=== PATIENT | female | born 1965 | race Caucasian/White ===

== ENCOUNTER → 2019-11-11 07:26 | Outpatient (CLI) | payer OTHER, SELFPAY ==
[2019-11-11 08:14] LABS: Add Manual Diff / Slide Review NO; Basophils Absolute Auto 0 /uL (0-100); Basophils Percent Auto 0.9 % (0-2); Eosinophils Absolute Auto 200 /uL (0-450); Eosinophils Percent Auto 3.1 % (2-4); Hematocrit 40.4 % (36-46); Hemoglobin 13.7 g/dL (12.0-16.0); Lymphocytes Absolute Auto 1900 /uL (1100-4500); Lymphocytes Percent Auto 32.3 % (25-40); Monocytes Absolute Auto 500 /uL (0-900); Neutrophils Absolute Auto 3200 /uL (1500-7000); Neutrophils Percent Auto 54.7 % (50-75); Platelet Count 267 X10^3/uL (150-400); Red Blood Cell Count 4.44 X10^6/uL (4.0-5.2); Red Cell Distribution Width 12.8 % (11.6-14.8); White Blood Cell Count 5.8 X10^3/uL (4.5-11.0)
[2019-11-11 08:32] LABS: Alanine Aminotransferase 18 IU/L (<35); Albumin 4.5 g/dL (3.5-5.0); Albumin Globulin Ratio 1.4 (1.0-2.8); Alkaline Phosphatase 98 U/L (38-126); Aspartate Aminotransferase 26 IU/L (14-36); Bilirubin Total 0.6 mg/dL (0.2-1.3); Blood Urea Nitrogen 19 mg/dL (7-17); Calcium 9.8 mg/dL (8.4-10.2); Carbon Dioxide 27 mmol/L (22-32); Chloride 104 mmol/L (98-107); Cholesterol 246 mg/dL (140-199); Estimated Glomerular Filt Rate > 60.0 mL/min (>60); Globulin 3.3 g/dL (1.7-4.1); Glucose 110 mg/dL (70-100); HDL Cholesterol 61 mg/dL (40-60); HEMOLYSIS < 15 (0-50); LDL Cholesterol Calculated 162 mg/dL (<100); Potassium 4.2 mmol/L (3.4-5.1); Sodium 140 mmol/L (137-145); Total Protein 7.8 g/dL (6.3-8.2); Triglycerides 114 mg/dL (35-150)
[2019-11-11 08:44] LABS: Progesterone, Total 1.17 ng/mL
[2019-11-11 08:47] LABS: Free T3, Triiodothyronine Free 3.72 pg/mL (2.77-5.27); Free T4, Direct Thyroxine 0.86 ng/dL (0.78-2.19)
[2019-11-11 09:00] LABS: Thyroid Stimulating Hormone 1.86 uIU/mL (0.47-4.68)
[2019-11-11 09:02] LABS: Cortisol AM (Before 10AM) 11.6 ug/dL (4.46-22.7)
[2019-11-12 00:06] LABS: Thyroid Peroxidase Antibodies <9 IU/mL (0-34)
[2019-11-17 10:48] LABS: Estradiol 7.6 pg/mL (.); Estriol,Serum <0.1 ng/mL (.); Estrone,Serum 70 pg/mL (.)
[2019-11-20 15:07] LABS: Percent Free Testosterone 1.74 % (0.50-2.80); Testosterone Free 0.22 ng/dL (0.10-0.85); Testosterone Total 12.6 ng/dL (.)
== END ==
PROVIDERS: PCP Nurse Practitioner; Referring Provider Nurse Practitioner; Visit Provider Nurse Practitioner
DX: N92.6 Irregular menstruation, unspecified (principal); N95.1 Menopausal and female climacteric states; R23.2 Flushing
CPT/HCPCS: 36415; 80053; 80061; 82533; 82627; 82670; 82677; 82679; 84144; 84402; 84403; 84439; 84443; 84481; 85025; 86376

== ENCOUNTER 2020-01-18 11:15 | Outpatient (RCR) | payer OTHER, SELFPAY ==
--- NOTE | 2019-11-11 17:23 | PT.OIE ---
Current Diagnoses Stress incontinence (female) (male) (11/11/19) Past Medical History (Last Updated 09/14/19 @ 19:43 by Jen Huber) Bilateral elbow joint pain (Acute) Depression (Acute) Eczema (Chronic) Elbow pain (Chronic ~2018) GERD (gastroesophageal reflux disease) (Chronic ~2014) Irregular menstrual cycle (Chronic ~2017) Obesity (BMI 35.0-39.9 without comorbidity) (Chronic) Perimenopause (Chronic) Pneumonia (Resolved ~2015) Positive PPD (Acute) Rosacea (Chronic ~2019) Sleep apnea (Chronic ~2018) Stress incontinence (Chronic ~2017) Past Surgical History (Last Updated 09/14/19 @ 19:43 by Jen Huber) Anesthesia (Resolved) History of meniscectomy of right knee (Resolved ~2015) History of radial keratotomy (Resolved ~1997) History of reduction mammoplasty (Resolved ~2008) Visit Care Team Role Provider Type LUCERO Barton Attending Provider Advanced Ceo And President Primary Care Provider Referring Provider Specialty: [facility] Address: [address] [place] [address], [facility] Email: [email or web address] Physical Therapy Initial Evaluation PT-OP-A Visit Information Start: 11/09/19 21:03 Freq: Status: Active Protocol: Document 11/11/19 08:19 LRN (Rec: 11/11/19 09:03 LRN [id number]) Out-Patient Physical Therapy Visit Information Visit Information Visit Type Initial Evaluation Visit Start Time 08:19 Visit Stop Time 09:02 Total Visit Minutes 43 Visit Number 1 Evaluation Information Evaluation Date 11/11/19 Precautions Precautions Chronic Back pain. PT-OP-B Current Condition Start: 11/09/19 21:03 Freq: Status: Active Protocol: Document 11/11/19 08:19 LRN (Rec: 11/11/19 09:03 LRN [id number]) Current Condition History of Current Condition Onset Date 15-20 yrs ago Current Complaints Urinary Leakage with laugh cough or sneeze. Trigger occasionally w/urge. History of Current Condition States she has had urinary leakage since children born. Pt reports 2 vaginal births 1997 and 2000 with no complications but with 1st degree tears on 1st and a 2nd degree tear on the last . She states sometimes her underwear smells like urine; therefore she may be leaking more than she is aware of. States she doesn't wear pads. Denies nighttime leakage. Pt has chronic back pain not associated to a specific injury. Her back pain is daily, sometimes worse with transfers sit to stand. She also complains of bilateral elbow pain. 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 Soft splints for medial epicondylitis caused her more pain. 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 See above for UI history. Treatment Goals Patient/Caregiver Goals Pt goal is to prevent worsening of her urinary leakage. Prior Functional Status Baseline Function- ADL's Independent Baseline Function- Mobility Independent Baseline Function- Other R handed. Current Functional Impairments (Reported) Functional Limitations- ADL's Light urinary leakage with strong cough/sneeze. Feeling of falling out with exertion. Inconvenience of smelling urine from underwear at the end of the day. Triggers: Shower/bath & warm water. 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 Chronicity of condition (since 1997). PT-OP-C Subjective Start: 11/09/19 21:03 Freq: Status: Active Protocol: Document 11/11/19 08:19 LRN (Rec: 11/11/19 09:03 [facility] [id number]) Patient Questionnaires Pelvic Pain and Urgency/Frequency Patient Symptom Scale Pelvic Pain Score 4 OP-PT Pain Assessment Pain Assessment Grid Paper Pain Assessment Grid Completed Yes Location Right knee Pain Location Details Medial R knee Intensity 4 Scale Used Numeric (1 - 10) Low Back Pain Location Details Low back Intensity 1 Scale Used Numeric (1 - 10) Description Aching,With Movement Frequency Intermittent Elbows Pain Location Details Medial elbows Intensity 3 Scale Used Numeric (1 - 10) Description Chronic PT-OP-I Pelvic Floor Start: 11/09/19 21:03 Freq: Status: Active Protocol: Document 11/11/19 08:19 LRN (Rec: 11/11/19 09:03 N [id number]) Pelvic Floor Assessment Urine Pelvic Floor Surgery No Urinary Symptoms Prolapse,Falling Out Feeling/ Heavy Leakage Size Small Leakage Cause Cough,Sneeze,Urge Other Leakage Causes Daily dribbles. Sometime with strong urge Voiding Frequency 4x/day Nocturia 0 Urine Pad Type Panty Liner Bowel Bowel Symptoms Constipation Other Bowel Symptoms No symptoms Pelvic Clock Pelvic Clock 12-3 Atrophy Pelvic Clock 3-6 Atrophy Pelvic Clock 6-9 Atrophy Pelvic Clock 9-12 Atrophy Prolapse Cystocele Grade 1 Perineal Descent Resting Absent Bearing Present Contraction Ability Voluntary Contraction Weak Voluntary Relaxation Weak Manual Muscle Testing Left 0 Manual Muscle Testing Right 0 Manual Muscle Testing Anterior 2 Manual Muscle Testing Posterior 1 Muscle Endurance (Seconds) 1 Number of Quick Contractions In 10 0 Seconds Comments Pelvic Floor Comments Pt substitutes with Abdominal, Gluteals & hip AD's to create a PF contraction. PT-OP-J Posture/Palpation/Skin Start: 11/09/19 21:03 Freq: Status: Active Protocol: Document 11/11/19 08:19 LRN (Rec: 11/11/19 09:03 LRN [id number]) Posture Evaluation Position Standing Evaluation View all positions Head/C-Spine Posture Forward Head T-Spine Posture Flattened Pelvis Posture Anteriorly Tilted Knee Posture (L) Genu Valgus,(R) Genu Valgus PT-OP-K Range of Motion Start: 11/09/19 21:03 Freq: Status: Active Protocol: Document 11/11/19 08:19 LRN (Rec: 11/11/19 09:03 LRN [id number]) Lumbar Spine Range of Motion Lumbar Spine Active Degrees Testing Position Standing Flexion 80 ROM Limitations Soft Tissue Tightness Comments WNL except as noted above. Hip Goniometric Range of Motion Hip Right Passive Testing Position Supine Extension 10 Abduction 45 Internal Rotation 45 External Rotation 70 Left Passive Testing Position Supine Extension 5 Abduction 40 Internal Rotation 50 External Rotation 60 PT-OP-M Strength Start: 11/09/19 21:03 Freq: Status: Active Protocol: Document 11/11/19 08:19 LRN (Rec: 11/11/19 09:03 LRN [id number]) Trunk Strength Trunk Manual Muscle Testing Testing Position Prone & Sitting Core Stabilization Pt not able to maintain core stability with MMT of hip extensors and L hip IR's, indicating weakness of trunk rotators and flexors. Hip Strength Hip Manual Muscle Testing Right Comments Generally 5/5 Left Extension (S1) 3 Fair Internal Rotation 3+ Fair+ Comments 5/5 except as noted above PT-OP-Q Treatments Start: 11/09/19 21:03 Freq: Status: Active Protocol: Document 11/11/19 08:19 LRN (Rec: 11/11/19 09:03 LRN [id number]) Self-Care/Home Management Treatment Education Patient Education Home Exercise Program Other Education Issued & reviewed Bladder Diary with I/S given for documenting fluids intake/ outputs. Reviewed pt to track daily. Discussed briefly pain in other body parts with potential for PT to address bilateral medial elbow joints. Activities Self-Care/Home Management Activities Issued and reviewed HEP for Kegels of Quick Flicks and Long Holds. Pt awareness training for isolation of PF from substitute muscles during Kegels. Pt awareness training for contraction of anterior vs posterior PF muscles. Utilized hand mirror for visual feedback of PF pati. Discussed self care of not stopping urine flow during voiding for exercise. PT-OP-T Assessment and Plan Start: 11/09/19 21:03 Freq: Status: Active Protocol: Document 11/11/19 08:19 LRN (Rec: 11/11/19 09:03 LRN [id number]) Physical Therapy Assessment Rehab Potential Rehabilitation Potential Good Evaluation Complexity Number of Personal Factors/Comorbidities 1-2 Impairments Impairments Activity Tolerance,Pain,ROM, Strength,Transfers Goals Four Impairment Substitute ms (gluteal, hip muscles) needed for PF contraction. Short Term Goal (STG) Pt will be aware of associated muscles during a PF contraction. Fdc Goal (LTG) Decrease use of associated abdominal/gluteal ms during a PF contraction. LTG Duration 01/10/20 Decreased PF endurance Impairment Quick Flicks 0 reps, Long Holds 1 rep using substitute ms. Short Term Goal (STG) Pt will be able to perform a palpable Quick Flick ms contraction and will be able to delay leakage from a strong urge. STG Duration 12/09/19 Fdc Goal (LTG) Pt will be able to hold a Long Hold PF contraction 8-10 sec' s with elimination of urinary leakage and decrease of observation of urine smell from underwear at least 5 days per week. LTG Duration 01/10/20 Three Impairment Dec'd superficial ms PF strength (0/5 of PF clock) Short Term Goal (STG) Improve awareness of PF contraction with pt able to palpate a PF contraction of the superficial muscles. STG Duration 12/09/19 Deicer Finisher Goal (LTG) Pt will improve PF strength of superficial muscles to 2-3/5 and will be able to delay urinating in the presence of a strong urge using the delay technique. LTG Duration 01/10/20 Two Impairment Dec'd deep ms PF strength (0/5 lateral christensen, 2/5 anterior, 1/5 posterior) Short Term Goal (STG) Improve awareness of PF contraction with feeling of lift with contraction. STG Duration 12/09/19 Fdc Goal (LTG) Improve PF strength of deep muscles to no less than 3-/5 with pt able to maintain continence in the presence of a strong urge. LTG Duration 01/10/20 One Impairment Lacks self care HEP Fdc Goal (LTG) Pt will be independent with a self care HEP to promote continued PF strengthening at end of therapy. LTG Duration 01/10/20 Assessment Summary Assessment Pt presents with stress urinary incontinence with occasional leakage from a strong urge. The pt is quite weak in her PF and is not able to properly perform a coordinated PF contraction. She has poor awareness of performing a proper PF contraction. The pt will benefit from skilled physical therapy to improve the awareness of proper PF contractions, and to improve her PF strength in both superficial and deep muscles in order to minimize urinary leakage. Her back pain will need to be addressed in order to now have muscle inhibition associated to the back pain and to improve her core/pelvic strength and stability. Physical Therapy Plan Frequency and Duration Frequency of Treatment 1x/Week Plan of Care Start Date 11/11/19 Plan of Care End Date 01/10/20 Therapeutic Interventions Therapeutic Interventions Coordination Training,Home Exercise Program,Joint Mobilizations,Manual Therapy, Neuromuscular Re-education, Patient/Caregiver Education, Self-Care/Home Management, Therapeutic Exercises Modalities Biofeedback,Electric Stimulation Other Referrals/Consults Referrals/Consults Recommended At completion of her UI rehabilitation therapy the pt would benefit from PT for her bilateral elbow pain. Next Visit Focus/Plan Next Note Type Treatment Note Next Visit Plan Review Bladder Diary and make appropriate recommendations. Discuss proper clothing wear ( underwear, restrictive clothing). EMG assessment Therapeutic Ex: Hip mobility- hamstrings, L hip ER/ext/AB, R hip IR Strengthening-L hip IR/ext; Core/PF strengthening I/S in proper breathing with exercise and ADLs.] HEP as appropriate.
--- NOTE | 2019-11-11 17:24 | PT.OPPOC ---
Physical, Occupational & Speech Therapy At [facility] Current Diagnoses Stress incontinence (female) (male) (11/11/19) Visit Care Team Role Provider Type LUCERO Barton Attending Provider Advanced Tafe Registrar Primary Care Provider Referring Provider Specialty: Family Practice Address: [address] [place] [address], [address] Email: [email or web address] Plan Of Care PT-OP-T Assessment and Plan Start: 11/09/19 21:03 Freq: Status: Active Protocol: Document 11/11/19 08:19 LRN (Rec: 11/11/19 09:03 LRN [id number]) Physical Therapy Assessment Rehab Potential Rehabilitation Potential Good Evaluation Complexity Number of Personal Factors/Comorbidities 1-2 Impairments Impairments Activity Tolerance,Pain,ROM, Strength,Transfers Goals Four Impairment Substitute ms (gluteal, hip muscles) needed for PF contraction. Short Term Goal (STG) Pt will be aware of associated muscles during a PF contraction. Senior Sharepoint Developer Goal (LTG) Decrease use of associated abdominal/gluteal ms during a PF contraction. LTG Duration 01/10/20 Decreased PF endurance Impairment Quick Flicks 0 reps, Long Holds 1 rep using substitute ms. Short Term Goal (STG) Pt will be able to perform a palpable Quick Flick ms contraction and will be able to delay leakage from a strong urge. STG Duration 12/09/19 Senior Living Goal (LTG) Pt will be able to hold a Long Hold PF contraction 8-10 sec' s with elimination of urinary leakage and decrease of observation of urine smell from underwear at least 5 days per week. LTG Duration 01/10/20 Three Impairment Dec'd superficial ms PF strength (0/5 of PF clock) Short Term Goal (STG) Improve awareness of PF contraction with pt able to palpate a PF contraction of the superficial muscles. STG Duration 12/09/19 Senior Sharepoint Developer Goal (LTG) Pt will improve PF strength of superficial muscles to 2-3/5 and will be able to delay urinating in the presence of a strong urge using the delay technique. LTG Duration 01/10/20 Two Impairment Dec'd deep ms PF strength (0/5 lateral christensen, 2/5 anterior, 1/5 posterior) Short Term Goal (STG) Improve awareness of PF contraction with feeling of lift with contraction. STG Duration 12/09/19 Senior Living Goal (LTG) Improve PF strength of deep muscles to no less than 3-/5 with pt able to maintain continence in the presence of a strong urge. LTG Duration 01/10/20 One Impairment Lacks self care HEP Senior Living Goal (LTG) Pt will be independent with a self care HEP to promote continued PF strengthening at end of therapy. LTG Duration 01/10/20 Assessment Summary Assessment Pt presents with stress urinary incontinence with occasional leakage from a strong urge. The pt is quite weak in her PF and is not able to properly perform a coordinated PF contraction. She has poor awareness of performing a proper PF contraction. The pt will benefit from skilled physical therapy to improve the awareness of proper PF contractions, and to improve her PF strength in both superficial and deep muscles in order to minimize urinary leakage. Her back pain will need to be addressed in order to now have muscle inhibition associated to the back pain and to improve her core/pelvic strength and stability. Physical Therapy Plan Frequency and Duration Frequency of Treatment 1x/Week Plan of Care Start Date 11/11/19 Plan of Care End Date 01/10/20 Therapeutic Interventions Therapeutic Interventions Coordination Training,Home Exercise Program,Joint Mobilizations,Manual Therapy, Neuromuscular Re-education, Patient/Caregiver Education, Self-Care/Home Management, Therapeutic Exercises Modalities Biofeedback,Electric Stimulation Other Referrals/Consults Referrals/Consults Recommended At completion of her UI rehabilitation therapy the pt would benefit from PT for her bilateral elbow pain. Next Visit Focus/Plan Next Note Type Treatment Note Next Visit Plan Review Bladder Diary and make appropriate recommendations. Discuss proper clothing wear ( underwear, restrictive clothing). EMG assessment Therapeutic Ex: Hip mobility- hamstrings, L hip ER/ext/AB, R hip IR Strengthening-L hip IR/ext; Core/PF strengthening I/S in proper breathing with exercise and ADLs.] HEP as appropriate. Plan of Care Dates Plan of Care Start Date 11/11/19 Plan of Care End Date 01/10/20 Electronically Signed by: Elvira Mas, PT 11/11/19 0884 Please Sign and Return: I have reviewed this Plan of Care and certify that the skilled therapy services above are required to meet the patient?s needs. Physician Signature Date Printed Name and Credentials Clinical Instructor Signature Printed Name and Credentials
--- NOTE | 2019-11-23 17:56 | PT.OTN ---
Current Diagnoses Stress incontinence (female) (male) (11/23/19) Physical Therapy Treatment Note PT-OP-A Visit Information Start: 11/09/19 21:03 Freq: Status: Active Protocol: Document 11/23/19 15:12 LRN (Rec: 11/23/19 15:55 LRN [id number]) Out-Patient Physical Therapy Visit Information Visit Information Visit Type Treatment Note Visit Start Time 15:12 Visit Stop Time 15:55 Total Visit Minutes 43 Visit Number 2 Evaluation Information Evaluation Date 11/11/19 Precautions Precautions Chronic Back pain. PT-OP-B Current Condition Start: 11/09/19 21:03 Freq: Status: Active Protocol: Document 11/11/19 08:19 LRN (Rec: 11/11/19 09:03 LRN [id number]) Current Condition History of Current Condition Onset Date 15-20 yrs ago Current Complaints Urinary Leakage with laugh cough or sneeze. Trigger occasionally w/urge. History of Current Condition States she has had urinary leakage since children born. Pt reports 2 vaginal births 1997 and 2000 with no complications but with 1st degree tears on 1st and a 2nd degree tear on the last . She states sometimes her underwear smells like urine; therefore she may be leaking more than she is aware of. States she doesn't wear pads. Denies nighttime leakage. Pt has chronic back pain not associated to a specific injury. Her back pain is daily, sometimes worse with transfers sit to stand. She also complains of bilateral elbow pain. 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 Soft splints for medial epicondylitis caused her more pain. 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 See above for UI history. Treatment Goals Patient/Caregiver Goals Pt goal is to prevent worsening of her urinary leakage. Prior Functional Status Baseline Function- ADL's Independent Baseline Function- Mobility Independent Baseline Function- Other R handed. Current Functional Impairments (Reported) Functional Limitations- ADL's Light urinary leakage with strong cough/sneeze. Feeling of falling out with exertion. Inconvenience of smelling urine from underwear at the end of the day. Triggers: Shower/bath & warm water. 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 Chronicity of condition (since 1997). PT-OP-C Subjective Start: 11/09/19 21:03 Freq: Status: Active Protocol: Document 11/23/19 15:12 LRN (Rec: 11/23/19 15:55 LRN [id number]) OP-PT Subjective Patient Comments Patient Comments Was challenged with ex's therefore became frustrated and wasn't compliant. States she i not able to feel a PF contraction. Forgot Bladder Diary. Would like to discuss online devices. Pt admits she would like to improve her minor leakage with as little as self exercising as possible . PT-OP-I Pelvic Floor Start: 11/09/19 21:03 Freq: Status: Active Protocol: Document 11/23/19 15:12 LRN (Rec: 11/23/19 15:55 LRN [id number]) Pelvic Floor Assessment SEMG (uV) Baseline 1.7 Quick Contraction 8.6 10 Second Contraction 9.9 Relaxation Good Holding Fair PT-OP-J Posture/Palpation/Skin Start: 11/09/19 21:03 Freq: Status: Active Protocol: Document 11/11/19 08:19 LRN (Rec: 11/11/19 09:03 LRN [id number]) Posture Evaluation Position Standing Evaluation View all positions Head/C-Spine Posture Forward Head T-Spine Posture Flattened Pelvis Posture Anteriorly Tilted Knee Posture (L) Genu Valgus,(R) Genu Valgus PT-OP-K Range of Motion Start: 11/09/19 21:03 Freq: Status: Active Protocol: Document 11/11/19 08:19 LRN (Rec: 11/11/19 09:03 LRN [id number]) Lumbar Spine Range of Motion Lumbar Spine Active Degrees Testing Position Standing Flexion 80 ROM Limitations Soft Tissue Tightness Comments WNL except as noted above. Hip Goniometric Range of Motion Hip Right Passive Testing Position Supine Extension 10 Abduction 45 Internal Rotation 45 External Rotation 70 Left Passive Testing Position Supine Extension 5 Abduction 40 Internal Rotation 50 External Rotation 60 PT-OP-M Strength Start: 11/09/19 21:03 Freq: Status: Active Protocol: Document 11/11/19 08:19 LRN (Rec: 11/11/19 09:03 LRN [id number]) Trunk Strength Trunk Manual Muscle Testing Testing Position Prone & Sitting Core Stabilization Pt not able to maintain core stability with MMT of hip extensors and L hip IR's, indicating weakness of trunk rotators and flexors. Hip Strength Hip Manual Muscle Testing Right Comments Generally 5/5 Left Extension (S1) 3 Fair Internal Rotation 3+ Fair+ Comments 5/5 except as noted above PT-OP-Q Treatments Start: 11/09/19 21:03 Freq: Status: Active Protocol: Document 11/23/19 15:12 LRN (Rec: 11/23/19 17:43 LRN [id number]) Neuro Re-Education Treatment Other Activities EMG/PF awareness training Details EMG with vaginal electrode for PF strengthening and awareness training. Reps/Duration 30 Comments Pt utilizes breath holding, abdominal/gluteal/hip AD's for PF strength substitution. V. cuing and discussion of pt' s substitute methods was pointed out. PT verbalized frustration at not being able to understand doing a PF contraction without looking at screen for biofeedback assist. Pt practiced Quick Flicks, Long holds (until fatigue of 2 -3 secs and for 10 secs) Self-Care/Home Management Treatment Education Patient Education Home Exercise Program Other Education Encouraged pt to fill bladder diary and gave examples of how the diary could be helpful in improving her level of continence. Discussed use of coitus for PF strengthening purposes as questioned by pt. Discussed an online stim unit and use of online underwear with pads that provide stimulation for PF strengthening. Discussed briefly that it would probably not help a lot for strengthening, but the use of electrical stim would be more beneficial. PT-OP-T Assessment and Plan Start: 11/09/19 21:03 Freq: Status: Active Protocol: Document 11/23/19 15:12 LRN (Rec: 11/23/19 15:55 LRN [id number]) Physical Therapy Assessment Goals Four Impairment Substitute ms (gluteal, hip muscles) needed for PF contraction. Short Term Goal (STG) Pt will be aware of associated muscles during a PF contraction. 10/23/19: Pt aware during EMG awareness training. STG Duration 12/09/19 (10/23/19: GOAL MET) Alf Goal (LTG) Decrease use of associated abdominal/gluteal ms during a PF contraction. LTG Duration 01/10/20 Decreased PF endurance Impairment Quick Flicks 0 reps, Long Holds 1 rep using substitute ms. Short Term Goal (STG) Pt will be able to perform a palpable Quick Flick ms contraction and will be able to delay leakage from a strong urge. STG Duration 12/09/19 Alf Goal (LTG) Pt will be able to hold a Long Hold PF contraction 8-10 sec' s with elimination of urinary leakage and decrease of observation of urine smell from underwear at least 5 days per week. LTG Duration 01/10/20 Three Impairment Dec'd superficial ms PF strength (0/5 of PF clock) Short Term Goal (STG) Improve awareness of PF contraction with pt able to palpate a PF contraction of the superficial muscles. STG Duration 12/09/19 Oxyacetylene Cutter Goal (LTG) Pt will improve PF strength of superficial muscles to 2-3/5 and will be able to delay urinating in the presence of a strong urge using the delay technique. LTG Duration 01/10/20 Two Impairment Dec'd deep ms PF strength (0/5 lateral christensen, 2/5 anterior, 1/5 posterior) Short Term Goal (STG) Improve awareness of PF contraction with feeling of lift with contraction. STG Duration 12/09/19 Oxyacetylene Cutter Goal (LTG) Improve PF strength of deep muscles to no less than 3-/5 with pt able to maintain continence in the presence of a strong urge. LTG Duration 01/10/20 One Impairment Lacks self care HEP Oxyacetylene Cutter Goal (LTG) Pt will be independent with a self care HEP to promote continued PF strengthening at end of therapy. LTG Duration 01/10/20 Progress Towards Goals Progress Comments Pt is now aware of how she is using breath holding, abdominals, hip muscles to gain a greater PF contraction. Assessment Summary Assessment See above for progress. Pt tolerance to PF EStim was poor . She tolerated an intensity of 8 with the [employer] STM-10 unit and was not able to get a PF contraction with stim. Pt appears to be frustrated and would like to improve with the least amount of time spent exercising; therefore her progress may be hindered and prolonged. Physical Therapy Plan Frequency and Duration Frequency of Treatment Trial:every other wk Plan of Care Start Date 11/11/19 Plan of Care End Date 01/10/20 Next Visit Focus/Plan Next Note Type Treatment Note Next Visit Plan Review Bladder Diary and make appropriate recommendations. Discuss proper clothing wear ( underwear, restrictive clothing). Pt awareness training with EMG . Discuss appropriateness of change in frequency of therapy due to financial burden. Therapeutic Ex: Hip mobility- hamstrings, L hip ER/ext/AB, R hip IR Strengthening-L hip IR/ext; Core/PF strengthening I/S in proper breathing with exercise and ADLs. HEP as appropriate.
--- NOTE | 2019-12-14 17:30 | PT.OTN ---
Current Diagnoses Stress incontinence (female) (male) (12/14/19) Physical Therapy Treatment Note PT-OP-A Visit Information Start: 11/09/19 21:03 Freq: Status: Active Protocol: Document 12/14/19 14:22 LRN (Rec: 12/14/19 15:06 LRN [id number]) Out-Patient Physical Therapy Visit Information Visit Information Visit Type Treatment Note Visit Start Time 14:22 Visit Stop Time 15:05 Total Visit Minutes 43 Visit Number 3 Evaluation Information Evaluation Date 11/11/19 Precautions Precautions Chronic Back pain. PT-OP-B Current Condition Start: 11/09/19 21:03 Freq: Status: Active Protocol: Document 11/11/19 08:19 LRN (Rec: 11/11/19 09:03 LRN [id number]) Current Condition History of Current Condition Onset Date 15-20 yrs ago Current Complaints Urinary Leakage with laugh cough or sneeze. Trigger occasionally w/urge. History of Current Condition States she has had urinary leakage since children born. Pt reports 2 vaginal births 1997 and 2000 with no complications but with 1st degree tears on 1st and a 2nd degree tear on the last . She states sometimes her underwear smells like urine; therefore she may be leaking more than she is aware of. States she doesn't wear pads. Denies nighttime leakage. Pt has chronic back pain not associated to a specific injury. Her back pain is daily, sometimes worse with transfers sit to stand. She also complains of bilateral elbow pain. 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 Soft splints for medial epicondylitis caused her more pain. 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 See above for UI history. Treatment Goals Patient/Caregiver Goals Pt goal is to prevent worsening of her urinary leakage. Prior Functional Status Baseline Function- ADL's Independent Baseline Function- Mobility Independent Baseline Function- Other R handed. Current Functional Impairments (Reported) Functional Limitations- ADL's Light urinary leakage with strong cough/sneeze. Feeling of falling out with exertion. Inconvenience of smelling urine from underwear at the end of the day. Triggers: Shower/bath & warm water. 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 Chronicity of condition (since 1997). PT-OP-C Subjective Start: 11/09/19 21:03 Freq: Status: Active Protocol: Document 12/14/19 14:22 LRN (Rec: 12/14/19 15:06 LRN [id number]) OP-PT Subjective Patient Comments Patient Comments Don't do the long hold ex's. Doing Quick Flicks 5-6x/day, 2 -3x/day. Would like come less frequently, follow ups 1/ month. Had accident on a long hard walk when coughing. Realizes that she doesn;t drink a lot drinks diuretics, and doesn't pee a lot. PT-OP-I Pelvic Floor Start: 11/09/19 21:03 Freq: Status: Active Protocol: Document 12/14/19 14:22 LRN (Rec: 12/14/19 15:06 LRN [id number]) Pelvic Floor Assessment SEMG (uV) Baseline 1.2 Comments Pelvic Floor Comments Pt appears to islolate her PF contractions from substitue ms . 10x: Max 8.1 Rest 2.7 20x: Max 8.0 Rest 2.6 LONG HOLDS 10X: Max 7.1 Rest 2.0 20x: Max 6.7 Rest 1.7 PT-OP-J Posture/Palpation/Skin Start: 11/09/19 21:03 Freq: Status: Active Protocol: Document 11/11/19 08:19 LRN (Rec: 11/11/19 09:03 LRN [id number]) Posture Evaluation Position Standing Evaluation View all positions Head/C-Spine Posture Forward Head T-Spine Posture Flattened Pelvis Posture Anteriorly Tilted Knee Posture (L) Genu Valgus,(R) Genu Valgus PT-OP-K Range of Motion Start: 11/09/19 21:03 Freq: Status: Active Protocol: Document 11/11/19 08:19 LRN (Rec: 11/11/19 09:03 LRN [id number]) Lumbar Spine Range of Motion Lumbar Spine Active Degrees Testing Position Standing Flexion 80 ROM Limitations Soft Tissue Tightness Comments WNL except as noted above. Hip Goniometric Range of Motion Hip Right Passive Testing Position Supine Extension 10 Abduction 45 Internal Rotation 45 External Rotation 70 Left Passive Testing Position Supine Extension 5 Abduction 40 Internal Rotation 50 External Rotation 60 PT-OP-M Strength Start: 11/09/19 21:03 Freq: Status: Active Protocol: Document 11/11/19 08:19 LRN (Rec: 11/11/19 09:03 LRN [id number]) Trunk Strength Trunk Manual Muscle Testing Testing Position Prone & Sitting Core Stabilization Pt not able to maintain core stability with MMT of hip extensors and L hip IR's, indicating weakness of trunk rotators and flexors. Hip Strength Hip Manual Muscle Testing Right Comments Generally 5/5 Left Extension (S1) 3 Fair Internal Rotation 3+ Fair+ Comments 5/5 except as noted above PT-OP-Q Treatments Start: 11/09/19 21:03 Freq: Status: Active Protocol: Document 12/14/19 14:22 LRN (Rec: 12/14/19 15:06 LRN [id number]) Therapeutic Exercises Supine Exercises Piriformis stretch Supine Exercise Name Piriformis stretch tolerable for long hold Side right Reps/Minutes 60 x 2 Comments Pt guided through maximal stretch position, repositioning needed Fig 4 Stretch Supine Exercise Name Fig 4 stretch f/b active hip ER x 10. Side left Reps/Minutes 4' Hamstring/LE neural stretch Supine Exercise Name Hamstring/LE neural stretch Side bilateral Reps/Minutes 4' Comments Extra time needed for training on positioning and performin the ex correct Long Holds Supine Exercise Name 4x, 20x, PF Quick Flicks Supine Exercise Name 20x Neuro Re-Education Treatment Other Activities EMG/PF awareness training Details PF stim with vaginal electrode . 50pps, 10:20 on:off cycle. Reps/Duration 10' Comments Intensity 10. Pt was able to feel a PF lift and was able to contract with the unit. Self-Care/Home Management Treatment Education Other Education Discussed & educated pt in proper breathing with transfers, body mechanics of bending, lifting, reaching and with coughing, ADLs. Discussed therapy sessions changing to 1/month for follow up care and assessment due to financial reasons. Discussed what pt noted when tracking bladder diary. Pt did not bring in diary but told what she found notable ( not drinking enough water, drinking a lot of bladder irritants, not urinating very often). Activities Self-Care/Home Management Activities HEP Issued & reviewed: Piriformis stretch L, hip ER's on R. Discussed benefits and home usage of an EStim unit. Pt declined for now due to financial concerns. PT-OP-T Assessment and Plan Start: 11/09/19 21:03 Freq: Status: Active Protocol: Document 12/14/19 14:22 LRN (Rec: 12/14/19 15:06 LRN [id number]) Physical Therapy Assessment Goals Four Impairment Substitute ms (gluteal, hip muscles) needed for PF contraction. Short Term Goal (STG) Pt will be aware of associated muscles during a PF contraction. 10/23/19: Pt aware during EMG awareness training. STG Duration 12/09/19 (10/23/19: GOAL MET) Legal Support Assistant Goal (LTG) Decrease use of associated abdominal/gluteal ms during a PF contraction. LTG Duration 01/10/20 (12/14/19: Improving) Decreased PF endurance Impairment Quick Flicks 0 reps, Long Holds 1 rep using substitute ms. Short Term Goal (STG) Pt will be able to perform a palpable Quick Flick ms contraction and will be able to delay leakage from a strong urge. STG Duration 12/09/19 Retirement Goal (LTG) Pt will be able to hold a Long Hold PF contraction 8-10 sec' s with elimination of urinary leakage and decrease of observation of urine smell from underwear at least 5 days per week. LTG Duration 01/10/20 Three Impairment Dec'd superficial ms PF strength (0/5 of PF clock) Short Term Goal (STG) Improve awareness of PF contraction with pt able to palpate a PF contraction of the superficial muscles. STG Duration 12/09/19 Retirement Goal (LTG) Pt will improve PF strength of superficial muscles to 2-3/5 and will be able to delay urinating in the presence of a strong urge using the delay technique. LTG Duration 01/10/20 Two Impairment Dec'd deep ms PF strength (0/5 lateral christensen, 2/5 anterior, 1/5 posterior) Short Term Goal (STG) Improve awareness of PF contraction with feeling of lift with contraction. STG Duration 12/09/19 (12/14/19: GOAL MET W /ESTIM) Retirement Goal (LTG) Improve PF strength of deep muscles to no less than 3-/5 with pt able to maintain continence in the presence of a strong urge. LTG Duration 01/10/20 One Impairment Lacks self care HEP Retirement Goal (LTG) Pt will be independent with a self care HEP to promote continued PF strengthening at end of therapy. LTG Duration 01/10/20 Progress Towards Goals Progress Comments Pt appeared able to perfom a PF contraction without visible substitute of abdominal or hip muscles with much v.cuing. STG 2 MET. Pt is much more aware of her fluids intake and bladder irritants. Today she was able to identify a PF contraction after use of EStim on the PF, vaginally. Assessment Summary Assessment Pt has financial and COVID-19 concerns; therefore will follow up with pt 1/month for PF assessment and progression of her HEP of core and PF strengthening. Pt is compliant for Quick Flick strengthening but not endurance holds; therefore progression may be slow due to poor follow through of exercises at home. Physical Therapy Plan Frequency and Duration Frequency of Treatment 1/month Plan of Care Start Date 11/11/19 Plan of Care End Date 01/10/20 Next Visit Focus/Plan Next Note Type Treatment Note Next Visit Plan Review HEP issued & issue Hamstring/neural stretch. Add to HEP/therapeutic ex: L hip Ext/AB stretch Strengthening-L hip IR/ext; Add pillow under hips for PF ex's and Progress Core/PF strengthening (roll in/out progression). PF EMG assessment.
--- NOTE | 2020-01-18 17:37 | PT.OTN ---
Current Diagnoses Stress incontinence (female) (male) (01/18/20) Physical Therapy Treatment Note PT-OP-A Visit Information Start: 11/09/19 21:03 Freq: Status: Active Protocol: Document 01/18/20 11:18 LRN (Rec: 01/18/20 12:32 LRN [id number]) Out-Patient Physical Therapy Visit Information Visit Information Visit Type Progress Note Visit Start Time 11:18 Visit Stop Time 12:07 Total Visit Minutes 49 Visit Number 4 Evaluation Information Evaluation Date 11/11/19 Precautions Precautions Chronic Back pain. PT-OP-B Current Condition Start: 11/09/19 21:03 Freq: Status: Active Protocol: Document 11/11/19 08:19 LRN (Rec: 11/11/19 09:03 LRN [id number]) Current Condition History of Current Condition Onset Date 15-20 yrs ago Current Complaints Urinary Leakage with laugh cough or sneeze. Trigger occasionally w/urge. History of Current Condition States she has had urinary leakage since children born. Pt reports 2 vaginal births 1997 and 2000 with no complications but with 1st degree tears on 1st and a 2nd degree tear on the last . She states sometimes her underwear smells like urine; therefore she may be leaking more than she is aware of. States she doesn't wear pads. Denies nighttime leakage. Pt has chronic back pain not associated to a specific injury. Her back pain is daily, sometimes worse with transfers sit to stand. She also complains of bilateral elbow pain. 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 Soft splints for medial epicondylitis caused her more pain. 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 See above for UI history. Treatment Goals Patient/Caregiver Goals Pt goal is to prevent worsening of her urinary leakage. Prior Functional Status Baseline Function- ADL's Independent Baseline Function- Mobility Independent Baseline Function- Other R handed. Current Functional Impairments (Reported) Functional Limitations- ADL's Light urinary leakage with strong cough/sneeze. Feeling of falling out with exertion. Inconvenience of smelling urine from underwear at the end of the day. Triggers: Shower/bath & warm water. 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 Chronicity of condition (since 1997). 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 Not as much as Piriformis or hamstring stretch. Doesn't feel improvement with long holds. Prefers not to have an internal assessment today. States she has improved because she notices she is not leaking as much since her underwear is not as wet in the evening and does not smell as much. PT-OP-I Pelvic Floor Start: 11/09/19 21:03 Freq: Status: Active Protocol: Document 01/18/20 11:18 LRN (Rec: 01/18/20 12:32 LRN [id number]) Pelvic Floor Assessment SEMG (uV) Baseline 1.3 Quick Contraction 10.6 10 Second Contraction 7 Recruitment Pattern Good Relaxation Fair Holding Fair Stability of Hold Good Comments Pelvic Floor Comments Pt can islolate her PF contractions from substitue ms . 10x: Max 810.6.1 Rest 3.4 20x: Max 9.5 Rest 3.3 LONG HOLDS 10X: Max 6.9 Rest 1.9 20x: Max 6.2 Rest 1.5 PT-OP-J Posture/Palpation/Skin Start: 11/09/19 21:03 Freq: Status: Active Protocol: Document 11/11/19 08:19 LRN (Rec: 11/11/19 09:03 LRN [id number]) Posture Evaluation Position Standing Evaluation View all positions Head/C-Spine Posture Forward Head T-Spine Posture Flattened Pelvis Posture Anteriorly Tilted Knee Posture (L) Genu Valgus,(R) Genu Valgus PT-OP-K Range of Motion Start: 11/09/19 21:03 Freq: Status: Active Protocol: Document 11/11/19 08:19 LRN (Rec: 11/11/19 09:03 LRN [id number]) Lumbar Spine Range of Motion Lumbar Spine Active Degrees Testing Position Standing Flexion 80 ROM Limitations Soft Tissue Tightness Comments WNL except as noted above. Hip Goniometric Range of Motion Hip Right Passive Testing Position Supine Extension 10 Abduction 45 Internal Rotation 45 External Rotation 70 Left Passive Testing Position Supine Extension 5 Abduction 40 Internal Rotation 50 External Rotation 60 PT-OP-M Strength Start: 11/09/19 21:03 Freq: Status: Active Protocol: Document 11/11/19 08:19 LRN (Rec: 11/11/19 09:03 LRN [id number]) Trunk Strength Trunk Manual Muscle Testing Testing Position Prone & Sitting Core Stabilization Pt not able to maintain core stability with MMT of hip extensors and L hip IR's, indicating weakness of trunk rotators and flexors. Hip Strength Hip Manual Muscle Testing Right Comments Generally 5/5 Left Extension (S1) 3 Fair Internal Rotation 3+ Fair+ Comments 5/5 except as noted above PT-OP-Q Treatments Start: 11/09/19 21:03 Freq: Status: Active Protocol: Document 01/18/20 11:18 LRN (Rec: 01/18/20 12:32 LRN [id number]) Therapeutic Exercises Sitting Exercises Hamstring/LE neural stretch Sitting Exercise Name Hamstring/LE neural stretch Side bilateral Reps/Minutes 3' Piriformis stretch Sitting Exercise Name Piriformis stretch Side bilateral Reps/Minutes 5' Standing Exercises Active Hamstring stretch Standing Exercise Name Active Hamstring stretch Side bilateral Reps/Minutes 4' Comments Discussed and held for various functional movements Neuro Re-Education Treatment Other Activities EMG/PF awareness training Details EMG with vaginal electrode for awareness Reps/Duration 22' Comments Pt needed v. cuing to prevent breath holding and abdominal tightening. No gluteal or hip substitution noted. Baseline reading (1') taken twice due to poor readings fron lead positioning. Self-Care/Home Management Treatment Education Patient Education Home Exercise Program Other Education Discussed possible need for cream to rejuvinate PF and for pt to discuss with MD. Handout issued and discussed use of JULVA gel for lubricant that might also help with PF health. Activities Self-Care/Home Management Activities HEP issued, reviewed, discussed various, more functional positions for exercising: Hamstring/LE neural stretch, Piriformis stretch on plinth/floor, Active standing hamstring stretch; Exercise strengthening: Hands/Knees push, and LE roll in/out with wedge & feet on wall. Reviewed with pt use of deep breathing and TA contraction during core strengthening. Pt needed showing hands/knees push ex in supine for awareness of feeling a TA contraction due to poor awareness in sitting. PT-OP-T Assessment and Plan Start: 11/09/19 21:03 Freq: Status: Active Protocol: Document 01/18/20 11:18 LRN (Rec: 01/18/20 12:32 LRN [id number]) Physical Therapy Assessment Rehab Potential Rehabilitation Potential Good Evaluation Complexity Number of Personal Factors/Comorbidities 1-2 Impairments Impairments Activity Tolerance,Pain,ROM, Strength,Transfers Goals Four Impairment Substitute ms (gluteal, hip muscles) needed for PF contraction. Short Term Goal (STG) Pt will be aware of associated muscles during a PF contraction. 10/23/19: Pt aware during EMG awareness training. STG Duration 12/09/19 (10/23/19: GOAL MET) Fdc Goal (LTG) Decrease use of associated abdominal/gluteal ms during a PF contraction. (01/18/20: Pt performs a PF contraction with mild abdominal activitation and no visible gluteal contraction). LTG Duration 05/17/20 (01/18/20: MET GOAL) Decreased PF endurance Impairment Quick Flicks 0 reps, Long Holds 1 rep using substitute ms. Short Term Goal (STG) Pt will be able to perform a palpable Quick Flick ms contraction and will be able to delay leakage from a strong urge. STG Duration 03/03/20 Barber Goal (LTG) Pt will be able to hold a Long Hold PF contraction 8-10 sec' s with elimination of urinary leakage and decrease of observation of urine smell from underwear at least 5 days per week. LTG Duration 05/17/20 (01/18/20: Improving, pt noting less urine smell in underwear) Three Impairment Dec'd superficial ms PF strength (0/5 of PF clock) Short Term Goal (STG) Improve awareness of PF contraction with pt able to palpate a PF contraction of the superficial muscles. STG Duration 03/03/20 Barber Goal (LTG) Pt will improve PF strength of superficial muscles to 2-3/5 and will be able to delay urinating in the presence of a strong urge using the delay technique. LTG Duration 05/17/20 Two Impairment Dec'd deep ms PF strength (0/5 lateral christensen, 2/5 anterior, 1/5 posterior) Short Term Goal (STG) Improve awareness of PF contraction with feeling of lift with contraction. STG Duration 12/09/19 (12/14/19: GOAL MET W /ESTIM) Fdc Goal (LTG) Improve PF strength of deep muscles to no less than 3-/5 with pt able to maintain continence in the presence of a strong urge. LTG Duration 05/17/20 One Impairment Lacks self care HEP Fdc Goal (LTG) Pt will be independent with a self care HEP to promote continued PF strengthening at end of therapy. LTG Duration 05/17/20 (01/18/20: Progressing) Progress Towards Goals Progress Comments Quick Flicks strength of contraction has improved & is fairly well maintained over 10 + reps. Long Holds are weaker because it is her strength of an isolated PF contraction. She initially is able to maintain a good contraction, but she does fatigue over time. 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 She requests no internal/external PF palpation ; therefore assessment of the PF was done per EMG biofeedback. She improved in PF strength of Quick Flicks and was able to maintain strength of contraction for 10 + reps. Long Holds are less due to isolation of her PF strength and she is able to maintain a higher strength of contraction through the 10 minutes although she does fatigue after a few seconds, except the initial contraction showed good holding strength. The pt feels her hip mobility is improving and she is trying to be more consistent with her HEP. The pt will benefit from continued physical therapy to progress the pt on her home exercise program. Physical Therapy Plan Frequency and Duration Frequency of Treatment 1/month Plan of Care Start Date 01/18/20 Plan of Care End Date 05/17/20 Therapeutic Interventions Therapeutic Interventions Coordination Training,Home Exercise Program,Joint Mobilizations,Manual Therapy, Neuromuscular Re-education, Patient/Caregiver Education, Self-Care/Home Management, Therapeutic Exercises Modalities Biofeedback,Electric Stimulation Next Visit Focus/Plan Next Note Type Treatment Note Next Visit Plan Review HEP issued (Hamstring/ neural stretch, Active standing hamstring stretch, piriformis stretch in sitting; Strengthening of core using hands/knees push & LE roll in/ outs on wedge and feet on wall ). Add to HEP/therapeutic ex: L hip Ext/AB stretch Strengthening-L hip IR/ext; Review use of pillow under hips for PF ex's and Progress Core/PF strengthening (roll in /out progression - rotation). PF EMG assessment.
--- NOTE | 2020-03-21 17:14 | PT-OP ANOTE ---
Message left regarding pt's lack of attendance since 01/18/20 and her cancelling of her last scheduled appt 02/15/20. Pt notified that if she does not call back by end of week 03/24/20 she will be discharged from therapy. Phone number to call back on was given.
--- NOTE | 2020-05-22 08:44 | PT.OPDS ---
Current Diagnoses Stress incontinence (female) (male) (01/18/20) Visit Care Team Role Provider Type LUCERO Barton Attending Provider [facility] Manager Primary Care Provider Referring Provider Specialty: Family Practice Address: [address] [place] [address], [facility] Email: [email or web address] Visit Number Visit Number 4 Discharge Summary PT-OP-B Current Condition Start: 11/09/19 21:03 Freq: Status: Active Protocol: Document 11/11/19 08:19 LRN (Rec: 11/11/19 09:03 LRN [id number]) Current Condition History of Current Condition Onset Date 15-20 yrs ago Current Complaints Urinary Leakage with laugh cough or sneeze. Trigger occasionally w/urge. History of Current Condition States she has had urinary leakage since children born. Pt reports 2 vaginal births 1997 and 2000 with no complications but with 1st degree tears on 1st and a 2nd degree tear on the last . She states sometimes her underwear smells like urine; therefore she may be leaking more than she is aware of. States she doesn't wear pads. Denies nighttime leakage. Pt has chronic back pain not associated to a specific injury. Her back pain is daily, sometimes worse with transfers sit to stand. She also complains of bilateral elbow pain. 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 Soft splints for medial epicondylitis caused her more pain. 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 See above for UI history. Treatment Goals Patient/Caregiver Goals Pt goal is to prevent worsening of her urinary leakage. Prior Functional Status Baseline Function- ADL's Independent Baseline Function- Mobility Independent Baseline Function- Other R handed. Current Functional Impairments (Reported) Functional Limitations- ADL's Light urinary leakage with strong cough/sneeze. Feeling of falling out with exertion. Inconvenience of smelling urine from underwear at the end of the day. Triggers: Shower/bath & warm water. 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 Chronicity of condition (since 1997). 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 Not as much as Piriformis or hamstring stretch. Doesn't feel improvement with long holds. Prefers not to have an internal assessment today. States she has improved because she notices she is not leaking as much since her underwear is not as wet in the evening and does not smell as much. PT-OP-I Pelvic Floor Start: 11/09/19 21:03 Freq: Status: Active Protocol: Document 01/18/20 11:18 LRN (Rec: 01/18/20 12:32 LRN [id number]) Pelvic Floor Assessment SEMG (uV) Baseline 1.3 Quick Contraction 10.6 10 Second Contraction 7 Recruitment Pattern Good Relaxation Fair Holding Fair Stability of Hold Good Comments Pelvic Floor Comments Pt can islolate her PF contractions from substitue ms . 10x: Max 810.6.1 Rest 3.4 20x: Max 9.5 Rest 3.3 LONG HOLDS 10X: Max 6.9 Rest 1.9 20x: Max 6.2 Rest 1.5 PT-OP-J Posture/Palpation/Skin Start: 11/09/19 21:03 Freq: Status: Active Protocol: Document 11/11/19 08:19 LRN (Rec: 11/11/19 09:03 LRN [id number]) Posture Evaluation Position Standing Evaluation View all positions Head/C-Spine Posture Forward Head T-Spine Posture Flattened Pelvis Posture Anteriorly Tilted Knee Posture (L) Genu Valgus,(R) Genu Valgus PT-OP-K Range of Motion Start: 11/09/19 21:03 Freq: Status: Active Protocol: Document 11/11/19 08:19 LRN (Rec: 11/11/19 09:03 LRN [id number]) Lumbar Spine Range of Motion Lumbar Spine Active Degrees Testing Position Standing Flexion 80 ROM Limitations Soft Tissue Tightness Comments WNL except as noted above. Hip Goniometric Range of Motion Hip Right Passive Testing Position Supine Extension 10 Abduction 45 Internal Rotation 45 External Rotation 70 Left Passive Testing Position Supine Extension 5 Abduction 40 Internal Rotation 50 External Rotation 60 PT-OP-M Strength Start: 11/09/19 21:03 Freq: Status: Active Protocol: Document 11/11/19 08:19 LRN (Rec: 11/11/19 09:03 LRN [id number]) Trunk Strength Trunk Manual Muscle Testing Testing Position Prone & Sitting Core Stabilization Pt not able to maintain core stability with MMT of hip extensors and L hip IR's, indicating weakness of trunk rotators and flexors. Hip Strength Hip Manual Muscle Testing Right Comments Generally 5/5 Left Extension (S1) 3 Fair Internal Rotation 3+ Fair+ Comments 5/5 except as noted above PT-OP-T Assessment and Plan Start: 11/09/19 21:03 Freq: Status: Active Protocol: Document 05/22/20 08:40 LRN (Rec: 05/22/20 08:44 LRN [id number]) Physical Therapy Assessment Goals Four Impairment Substitute ms (gluteal, hip muscles) needed for PF contraction. Short Term Goal (STG) Pt will be aware of associated muscles during a PF contraction. 10/23/19: Pt aware during EMG awareness training. STG Duration 12/09/19 (10/23/19: GOAL MET) Correction Goal (LTG) Decrease use of associated abdominal/gluteal ms during a PF contraction. (01/18/20: Pt performs a PF contraction with mild abdominal activitation and no visible gluteal contraction). LTG Duration 05/17/20 (01/18/20: MET GOAL) Decreased PF endurance Impairment Quick Flicks 0 reps, Long Holds 1 rep using substitute ms. Short Term Goal (STG) Pt will be able to perform a palpable Quick Flick ms contraction and will be able to delay leakage from a strong urge. STG Duration 03/03/20 Correction Goal (LTG) Pt will be able to hold a Long Hold PF contraction 8-10 sec' s with elimination of urinary leakage and decrease of observation of urine smell from underwear at least 5 days per week. LTG Duration 05/17/20 (01/18/20: Improving, pt noting less urine smell in underwear) Three Impairment Dec'd superficial ms PF strength (0/5 of PF clock) Short Term Goal (STG) Improve awareness of PF contraction with pt able to palpate a PF contraction of the superficial muscles. STG Duration 03/03/20 Correction Goal (LTG) Pt will improve PF strength of superficial muscles to 2-3/5 and will be able to delay urinating in the presence of a strong urge using the delay technique. LTG Duration 05/17/20 Two Impairment Dec'd deep ms PF strength (0/5 lateral christensen, 2/5 anterior, 1/5 posterior) Short Term Goal (STG) Improve awareness of PF contraction with feeling of lift with contraction. STG Duration 12/09/19 (12/14/19: GOAL MET W /ESTIM) Correction Goal (LTG) Improve PF strength of deep muscles to no less than 3-/5 with pt able to maintain continence in the presence of a strong urge. 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 LTG Duration 05/17/20 (01/18/20: Progressing) Progress Towards Goals Progress Comments Quick Flicks strength of contraction has improved & is fairly well maintained over 10 + reps. Long Holds are weaker because it is her strength of an isolated PF contraction. She initially is able to maintain a good contraction, but she does fatigue over time. Assessment Summary Assessment Pt did not complete rehabilitation program (goals not met) and is being discharged due to lack of attendance. Progress towards goals are indicated above. Physical Therapy Plan Discharge Physical Therapy Discharge Reasons No Longer Attending PT Discharge Comments Pt last attended appt was 01/17, message left 03/21/20 for pt to call to schedule more visits by end of week. Pt has not called to reschedule; therefore she is being discharged for lack of attendance. Pt's Plan of Care has and she will need a new referral to return to physical therapy.
== END 2020-06-22 08:37 ==
LOC: PHYS 11:15
PROVIDERS: PCP Nurse Practitioner; Referring Provider Nurse Practitioner; Visit Provider Nurse Practitioner
DX: N39.3 Stress incontinence (female) (male) (principal)
CPT/HCPCS: 97110; 97112; 97162; 97535

== ENCOUNTER → 2020-04-07 11:50 | Outpatient (CLI) | payer OTHER, SELFPAY | PROVIDERS: PCP Nurse Practitioner; Referring Provider Nurse Practitioner; Visit Provider Nurse Practitioner | DX: Z01.818 Encounter for other preprocedural examination (principal) | CPT/HCPCS: 93005 ==

== ENCOUNTER → 2020-04-07 11:52 | Outpatient (CLI) | payer OTHER, SELFPAY ==
[2020-04-08 22:38] LABS: COVID19 Sendout Not Detected (Not Detect)
== END ==
PROVIDERS: PCP Nurse Practitioner; Visit Provider Physician Assistant
DX: Z01.812 Encounter for preprocedural laboratory examination (principal)
CPT/HCPCS: 87635

== ENCOUNTER 2020-04-10 07:57 | Day surgery (SDC) | payer OTHER, SELFPAY ==
[2020-04-06 07:42] VITALS: BMI 37.9
[2020-04-10] VITALS (14 sets, daily range): BP systolic 104–130; BP diastolic 55–85; PULSE 69–91; RESP 8–20; TEMP 36.6–37.2; O2SAT 92–100; BMI 37.8
--- NOTE | 2020-04-10 | PATH_ITS ---
[facility] Accession Number: [id number] . 01 Material submitted: . uterus - UTERUS, BILATERAL FALLOPIAN TUBES AND OVARIES . 01 Clinical history: . OPB . 02 Diagnosis: Uterus, Bilateral Fallopian Tubes and Ovaries, Hysterectomy and Bilateral Salpingo-oophorectomy: 1. Benign endometrial polyp. 2. Endometrium, negative for atypical hyperplasia. 3. Uterus, cervix, and bilateral ovaries and fallopian tubes with no evidence of neoplasia. MRV 04/12/2020 1305 Local . 02 Electronically signed: . Johanna Simpson MD, Pathologist NPI- [id number] . 01 Gross description: . Received in formalin, labeled uterus, bilateral tubes, ovaries, cervix, and consists of a 126-gram uterus, cervix, and bilateral attached adnexa. The specimen measures 9.5 cm from superior fundus to cervix x 6.0 cm from cornu to cornu x 4.0 cm from anterior to posterior. The serosa is rich-pink and smooth with focal areas of disruption. The rich-pink focally hemorrhagic smooth ectocervix measures 4.0 x 3.5 cm and there is a 1.5 x 0.2 cm slit-like probe patent os. The specimen is bivalved to reveal a rich-pink herringbone endocervical mucosa. The endometrial cavity measures 4.5 x 1.5 cm and displays a pink-red glistening endometrium measuring 0.1 cm in thickness. There is a 1.5 x 1.0 x 0.5 cm endometrial polyp. The myometrium is rich-pink and trabeculated measuring 2.3 cm in thickness. The right ovary measures 3.2 x 1.5 x 1.2 cm and the left ovary measures 3.0 x 1.5 x 0.8 cm. The external surface is rich-pink and cerebriform. Sectioning reveals a rich-pink ovarian stroma. The right fallopian tube measures 6.5 cm in length x 0.8 cm in diameter and the left fallopian tube measures 5.8 cm in length by 0.8 cm in diameter. The serosa is pink-purple and smooth. Sectioning reveals a rich mucosa and a stellate lumen measuring 0.4 cm in diameter. Jewel Bearing Facer sections are submitted. . A1: anterior cervix. A2: posterior cervix. A3-A5: anterior uterus, full-thickness section and endometrial polyp entirely submitted. A6: posterior uterus, full-thickness section. A7: screening representative right ovary. A8-A9: right fallopian tube, central cross-sections and bisected fimbria. A10: screening representative left ovary. A11-A12: screening representative left fallopian tube, central cross-sections and bisected fimbria. ([id number]) /MRV 04/11/2020 1054 Local . 02 Pathologist provided ICD-10: N81.4 . 02 CPT . 650037 Performed at: 01 [facility], [facility] [address] [id number] MD Jack Heredia MD Phone: [phone] Performed at: 02 [facility] [address] [place] [id number] MD Johanna Simpson MD Phone: [phone]
[2020-04-10] MEDS: LACTATED RINGERS 1,000 ML 100 ML IV ×3 (08:42→14:05)
--- NOTE | 2020-04-10 08:51 | SUR.OPER ---
Lithotomy on padded OR bed. [place] Pad Positioner under torso. Head on pillow, arms padded and tucked at sides. Legs secured in padded yellow fins stirrups.
[2020-04-10] MEDS: SCOPOLAMINE 1 PATCH TOP (09:05)
[2020-04-10] MEDS: APREPITANT 40 MG CAPSULE PO (09:06)
[2020-04-10] MEDS: ACETAMINOPHEN 325 MG TABLET 975 MG PO (09:06)
[2020-04-10] MEDS: CEFAZOLIN 2 GM/100 ML FROZ.PIGGY IV (09:12)
[2020-04-10] MEDS: BUPIVACAINE 0.5% W/ EPI (PF) 30 ML VIAL 60 ML INJ (09:59)
--- NOTE | 2020-04-10 12:37 | PM.PREOP ---
Pre-operative Note COVID-19 COVID-19 status: Negative Result date/Date tested (Pos, Neg/Pending): 04/07/20 Interval Note History & Physical reviewed/Exam performed by Physician: Yes Changes to H&P: No H&P completed within 30 days and has changed as indicated here:: 04/04/20
--- NOTE | 2020-04-10 12:37 | PM.GYNOP.1 ---
Procedure & Clinicians Procedure: Procedures Operation Date: 04/10/20 09:15 Actual Procedures Side Surgeon p Laparoscopic Assisted Vag Hysterectomy, Bilateral Salpingo-oophorectomy Rosario Richardson MD s Anterior/Posterior Repair Rosario Richardson MD Indications: Pelvic relaxation Uterine prolapse Cystocele Rectocele Surgeon: Rosario Richardson Nurs[employer] Counselor: Don Arroyo Anesthesia Type: General Operative Notes Findings: Ten week size prolapsed uterus Second-degree cystocele Third-degree rectocele Normal tubes and ovaries Normal liver and gallbladder Normal appendix Closure Type: primary Specimen(s): left tube & ovary, right tube & ovary and uterus Applied: catheter (To continuous drainage) Estimated blood loss (mL): 200 Blood products transfused: none Procedure in detail: The patient was taken to the operating room where she was placed in the dorsal supine position. After adequate general endotracheal anesthesia was achieved, she was placed in the dorsal lithotomy position, and prepped and draped in the usual sterile fashion. A bivalve speculum was placed into the vagina, and a single-tooth tenaculum was placed on the anterior lip of the cervix. The cervical os was sequentially dilated until the ZUMI uterine manipulator could pass easily into the endometrial cavity. The single-tooth tenaculum was removed from the anterior lip of the cervix, and the bivalve speculum was removed from the vagina. Attention was then turned to the abdomen where 6 mL of half percent Marcaine with epinephrine were injected in the umbilical fold. A 5 mm incision was made. The Verees needle was placed into the peritoneal cavity, and its placement confirmed by aspiration and drop test. The abdominal cavity was insufflated with 4 L of CO2. The Verees needle was removed, and a 5 mm trocar was placed without difficulty. Initial inspection of the pelvis revealed the findings noted above. 2 other incisions were made midway between the pubic symphysis and umbilicus 4 cm lateral to the midline. These were 5 mm incisions. Two 5 mm trocars were placed under direct visualization. The right tube and ovary were grasped with an atraumatic grasper. The infundibulopelvic ligament on the right side was cauterized and cut with plasma kinetic. The round ligament and broad ligament were cauterized and cut. This was continued to the level of the uterine arteries. This was repeated on the patient's left side. The instruments were removed from the abdomen. Attention was then turned to the vagina where the ZUMI uterine manipulator was removed from the uterus. The cervix was grasped with a 4 tooth tenaculum. 10 mL of quarter percent Marcaine with epinephrine were injected circumferentially around the cervix. The cervix was circumscribed. The bladder and rectum were dissected off the lower uterine segment and cervix with an open moistened Ray-Evelio. The peritoneum was entered sharply with the Metzenbaum scissors posteriorly and a long weighted speculum placed into the posterior cul-de-sac. The anterior peritoneum was not easily identified. The uterosacral cardinal ligament complexes were clamped, transected, and suture ligated with 0 Vicryl. These were attached to hemostats. A finger was placed through the posterior cul-de-sac into the anterior cul-de-sac and the peritoneum identified, grasped between 2 hemostats, and entered sharply with the Metzenbaum scissors. A Kamala was placed into the anterior cul-de-sac. Several more bites were taken on either side, transected, and suture ligated with 0 Vicryl. The uterine arteries were clamped, transected, and suture ligated with 0 Vicryl. The uterus was handed off for specimen with the tubes and ovaries. The peritoneum was closed with a pursestring suture with 2-0 Vicryl. The vaginal cuff was closed with 0 Vicryl with a series of simple interrupted sutures. The tagged sutures were cut. 2 Allis clamps were placed at the apex of the cystocele. 6 mL of half percent Marcaine with epinephrine were injected and an incision was made with a #10 blade between the 2 Allis clamps. Wide Allis clamps were placed on the midline of the cystocele approximately 4. The mucosa was undermined using the Metzenbaum scissors and the mucosa incised in the midline moving the wide Allis clamps to the edges of the mucosa. The mucosa was dissected off the underlying fascia using an open moistened Ray-Evelio and a #10 blade. The fascia was reapproximated with 0 Vicryl with a series of horizontal mattress sutures. The excess vaginal mucosa was excised. The mucosa was closed using simple interrupted sutures with 2-0 Vicryl including the underlying fascia to close the space. The weighted speculum was removed from the vagina. Allis clamps were placed at the mucocutaneous junction at the introitus. 6 mL of half percent Marcaine with epinephrine were injected. An incision was made with a #10 blade between the 2 Allis clamps, and a triangular piece of skin and underlying subcutaneous tissue was removed. Allis clamps were placed in the midline of the rectocele. 10 mL of half percent Marcaine with epinephrine were injected submucosally. The mucosa was undermined using the Metzenbaum scissors and the mucosa incised in the midline, moving the wide Allis clamps to the mucosal edges. The underlying fascia was dissected off of th mucosa using an open moistened Ray-Evelio and a #10 blade. The fascia was reapproximated using 0 Vicryl with a series of horizontal mattress sutures. The excess vaginal mucosa was excised. The mucosa was closed using a series of simple interrupted sutures with 2-0 Vicryl including the underlying fascia to close the space. On the perineum 0 Vicryl was used to reapproximate the levator muscle. The subcutaneous layer was closed with 2-0 Vicryl. The skin was closed with 3-0 chromic in a subcuticular fashion. Hemostasis was achieved. A Baby shampoo moistened vaginal pack was placed into the vagina. A rectal exam was done and there were no sutures palpable in the rectum. The urine was clear. Attention was turned back to the abdomen where the CO2 was reinstituted. Inspection of the pelvis revealed small amount of old blood. Irrigation was used to clear this. There was no active bleeding. The instruments were removed from the abdomen. The CO2 was allowed to escape. The incisions were repaired with 4 0 Biosyn in a subcuticular fashion. Steri-Strips, 2 x 2, and op site were placed over the incisions. Sponge, lap, and instrument counts were correct x-2. The patient tolerated the procedure well, was taken to PACU in stable condition. Complications: none Post-operative Condition: stable Disposition: PACU Plan for aftercare: To acute care after recovery
[2020-04-10] MEDS: KETOROLAC 30 MG/ML VIAL IV ×2 (14:00→20:00)
[2020-04-10] MEDS: ONDANSETRON 4 MG/2 ML INJ IV (14:05)
--- NOTE | 2020-04-10 14:55 | PC.ADMIT ---
[email or web address] [facility] Admission Note: The patient,Allyson Cuellar,54 y/o, was given written information regarding hospital policies, unit procedures and contact persons. Patient's smoking status: Never smoker. Vital Signs - 8 hr 04/10/20 08:18 04/10/20 12:38 04/10/20 12:43 Temperature 98.2 F 97.8 F Pulse Rate 70 71 75 Respiratory Rate 20 10 L 8 L Blood Pressure 117/74 118/75 111/67 Pulse Oximetry 97 92 92 04/10/20 12:48 04/10/20 12:53 04/10/20 13:03 Temperature Pulse Rate 81 75 72 Respiratory Rate 9 L 9 L 13 Blood Pressure 104/57 L 112/71 114/73 Pulse Oximetry 94 95 95 04/10/20 13:30 04/10/20 14:00 04/10/20 14:08 Temperature 97.8 F Pulse Rate 70 69 70 Respiratory Rate 20 20 18 Blood Pressure 124/76 130/85 Pulse Oximetry 94 96 95 04/10/20 14:30 Temperature Pulse Rate 72 Respiratory Rate 20 Blood Pressure 115/80 Pulse Oximetry 100 Patient arrived from recovery at 1330 with cramping pain 5/10 to suprapubic area. Lap sites all CDI. Reyes patent with yellow clear urine. Sherley-pad clean. Reports mild nausea, given Zofran and Toradol. Given juice/water and crackers.
[2020-04-10] MEDS: OXYCODONE/ACETAMINOPHEN 5/325 TABLET 2 TAB PO (21:57)
[2020-04-10] MEDS: DOCUSATE 250 MG CAPSULE PO (22:05)
[2020-04-11] MEDS: LACTATED RINGERS 1,000 ML 100 ML IV (00:32)
[2020-04-11] MEDS: OXYCODONE/ACETAMINOPHEN 5/325 TABLET 2 TAB PO ×2 (02:10→10:20)
[2020-04-11] MEDS: KETOROLAC 30 MG/ML VIAL IV (02:10)
[2020-04-11 05:00] VITALS: BP 105/58; PULSE 63; RESP 18; TEMP 36.3; O2SAT 98
[2020-04-11 05:57] LABS: Add Manual Diff / Slide Review NO; Basophils Absolute Auto 0 /uL (0-100); Basophils Percent Auto 0.2 % (0-2); Eosinophils Absolute Auto 0 /uL (0-450); Eosinophils Percent Auto 0.3 % (2-4); Hematocrit 33.3 % (36-46); Hemoglobin 11.3 g/dL (12.0-16.0); Lymphocytes Absolute Auto 1800 /uL (1100-4500); Lymphocytes Percent Auto 19.1 % (25-40); Mean Corpuscular HGB Conc 33.8 % (30-36); Mean Corpuscular Hemoglobin 30.6 PG (26-34); Mean Corpuscular Volume 90.6 fL (80-100); Monocytes Absolute Auto 900 /uL (0-900); Monocytes Percent Auto 9.4 % (3-14); Neutrophils Absolute Auto 6800 /uL (1500-7000); Platelet Count 215 X10^3/uL (150-400); Red Blood Cell Count 3.68 X10^6/uL (4.0-5.2); Red Cell Distribution Width 13.2 % (11.6-14.8); White Blood Cell Count 9.5 X10^3/uL (4.5-11.0)
[2020-04-11] MEDS: DOCUSATE 250 MG CAPSULE PO (06:23)
--- NOTE | 2020-04-11 06:37 | PC.NURSE ---
0600 Reyes discontinued & vaginal packing removed, Tolerated procedure well, no C/O pain. Noted small amount of bloody drainage in her peripad. Requested to take her stool softener 250 mg. of Colace admin. Also given regular coffee per her request, will monitor.
[2020-04-11 08:29] VITALS: BP 108/61; PULSE 82; RESP 15; TEMP 36.7
[2020-04-11] MEDS: MAGNESIUM HYDROXIDE 30 ML UDC PO (09:16)
--- NOTE | 2020-04-11 11:35 | CM.DANOTE ---
DCP: Case received, EMR reviewed and met with patient. Introduced self and role. Was able to obtain information from patient regarding her baseline activity status prior to hospitalization. DCP assessment completed with information currently available. Patient is a 54 year old female who admitted yesterday morning to the care of the RECHARGER team. PCP: Summer BARKER. Payer: confirmed: [employer] ([employer]). Patient came to the hospital for a surgical procedure. She had a laparoscopic assisted vaginal hysterectomy, and bilateral salpingo-oophorectomy. Patient has history of uterine prolapse, cystocele, and rectocele. Met with patient in her room. She is alert and oriented, pleasant. She resides here in [place] with her spouse, Sukhwinder. She is independent at baseline. P: DCP to continue to follow. Patient should be able to go home when she is medically stable. Dianne oLbo RN/Door Repairer Bus
--- NOTE | 2020-04-11 13:37 | PC.NURSE ---
Discharge: Feels ready to d/c home. Has been able to void, pvr was 82mls. Dr. Richardson here x2 and gave pt discharge instructions. Pt has been up amb w/out problems. Scant vag flow, tolerates diet w/out problems. Po pain meds have been effective. 3 lap incisions are c/d/i. She can take them off tomorrow after she showers. Denies any problems or concerns. Already has rx at home. Reviewed d/c packet. Questions answered. Pt discharged home via auto w/spouse.
--- NOTE | 2020-04-12 20:41 | PM.DS.1 ---
History of Present Illness History of Present Illness Date Patient Seen: 04/11/20 Time Patient Seen: 11:30 Chief complaint: OPB Narrative: Patient is a 54-year-old postop day # 1 status post LAVH / BSO / anterior and posterior repair. Her Reyes catheter was removed at 6:00 a.m. as well as vaginal packing. She voided 500 cc of clear yellow urine 2 hours later with an 82 cc postvoid residual. Her pain is well controlled. She is tolerating a diet. She has had a small bowel movement. She is ambulating without assistance. Discharge Providers Provider Discharge Date: 04/11/20 Primary care physician: LUCERO Barton Consults: 04/10/20 08:30 Consult to Respiratory Therapy Evaluate & Treat Comment: Physician Instructions: Evaluate and treat Discharge provider: Rosario Richardson MD Summary Hospital Course Discharge Diagnosis: Uterine prolapse Cystocele Rectocele S/P LAVH/BSO/Anterior-Posterior repair Hospital Course: Patient is a 54-year-old 2 para 2 who was admitted on April 10, 2020 for a scheduled LAVH / BSO /anterior and posterior repair. She underwent this procedure without complication. Her postoperative course was unremarkable. She tolerated a diet on postop day # 0. On postop day # 1 her Reyes catheter was removed at 6:00 a.m. as well as vaginal packing. She voided 500 cc of clear yellow urine and had an 80 cc postvoid residual. Her pain is well controlled. She has had a small bowel movement. She is discharged home. Status at Discharge Cognitive/behavioral status at discharge: oriented Functional status at discharge: independent ambulation Overall status at discharge: patient is progressing back to baseline Time Spent with Patient Time spent: Less than 30 minutes Exam Vital Signs (past 8 hours): Oxygen Delivery Method Room Air Oxygen Flow Rate 100 Narrative Exam Narrative: Generally: Patient is sittining up in bed, no acute distress Lungs: Clear to auscultation bilaterally Abdomen: Soft and flat. Good bowel sound Incisions: Clean dry and intact with op sites Perineum: Dry Objective Labs Result Diagrams: 04/11/20 05:06 Discharge Assessment & Plan Assessment and Plan Assessment: Postop day # 1 status post LAVH /BSO /anterior and posterior repair, doing very well Plan of Treatment: Discharge to home Follow-up 2 weeks Void every 3 hours Ibuprofen/Percocet for pain No heavy lifting Discharge Plan Discharge Plan Patient Disposition: Home Provider Discharge Comment: Empty bladder every 3 hours, even at night for first few days Call with fever, chills, redness or drainage around incisions or bleeding vaginally more than spotty to light Ibuprofen 600mg every 6 hours, please record last dose of ketoralac Discharge orders & Medications Discharge Orders: Discharge (Order); Ordered 04/11/20 Ordered By: Rosario Richardson Prescriptions: New oxycodone-acetaminophen [Percocet] 5-325 mg tablet 1 tab PO Q4-6H PRN (Reason: pain) Qty: 20 RF: 0 Continued estradiol 0.05 mg/24 hr patch semiweekly 1 patch transdermal 2XW Qty: 8 RF: 6 multivitamin Tablet 1 tab PO DAILY RF: 0 Discontinued progesterone micronized [Prometrium] 100 mg capsule 100 mg PO QAM 30 Days Qty: 30 RF: 6 triamcinolone acetonide 0.1 % ointment 1 applictn TOP .PRN RF: 0 Shingrix (PF) 50 mcg/0.5 mL suspension for reconstitution 0.5 ml IM ONCE Qty: 1 RF: 0 No Action (DME) oral appliance Qty: 1 RF: 0 Follow up/Referrals: Rosario Richardson MD [Physician] - 2 Weeks (Telehealth appt in 2 wks ) Diet/Activity/Treatments Diet: Regular Activity: No heavy lifting for 6 weeks Skin/Wound/Dressing Care Report to your healthcare provider any signs of infection, such as:: chills, fever, increased pain, unusual drainage and unusual redness Dressing: Remove outer plastic dressings and guaze after first shower Visit Report/Discharge Packet Instructions: DI for Cystocele/Rectocele, DI for Laparoscopy, DI for Constipation, DI for Vaginal Hysterectomy Stand Alone Forms: Surgery Discharge Discharge Data Primary Care Provider: Summer Mckeon Attending Provider: Rosario Richardson Discharges patient from system. Discharge Date/Time: 04/11/20 13:30
== END 2020-04-11 13:30 | disposition home or self-care (01) ==
LOC: OR 07:59 → AC 08:00
PROVIDERS: PCP Nurse Practitioner; Referring Provider Nurse Practitioner; Visit Provider Obstetrics & Gynecology
PROC: 0UT9FZZ Resection of Uterus, Via Natural or Artificial Opening With Percutaneous Endoscopic Assistance (ICD-10-PCS; CPT 58552; principal; 2020-04-10 09:15)
PROC: (CPT 58552; 2020-04-10 09:15)
DX: N81.89 Other female genital prolapse (principal); N81.2 Incomplete uterovaginal prolapse; N81.6 Rectocele; N39.3 Stress incontinence (female) (male); E66.9 Obesity, unspecified; Z68.35 Body mass index [BMI] 35.0-35.9, adult; K21.9 Gastro-esophageal reflux disease without esophagitis; G47.30 Sleep apnea, unspecified; N84.0 Polyp of corpus uteri
CPT/HCPCS: 58552; 57260; 36415; 85025; 94762; J0330; J0690; J1100; J1170; J1885; J2250; J2405; J2704; J3010; J8501

== ENCOUNTER → 2020-06-13 09:58 | Outpatient (CLI) | payer OTHER, SELFPAY ==
[2020-04-10 14:18] VITALS: BMI 37.8
--- NOTE | 2020-06-13 10:02 | DI.RAD.S_ITS ---
PROCEDURE: XR CERVICAL SPINE 2V OR 3V INDICATIONS: right shoulder pain/shooting pain TECHNIQUE: 3 view(s) of the cervical spine were acquired. COMPARISON: None. FINDINGS: Bones: No fractures or dislocations to the T1 level. The lateral masses of C1 appear intact on the odontoid view. No suspicious bony lesions. Mild to moderate C6-C7 degenerative disease. Mild C4-C5 and C5-C6 degenerative disc disease. Mild C5-C6, C6-C7 and C7-T1 facet arthropathy. Soft tissues: No prevertebral soft tissue swelling. IMPRESSION: 1. Multilevel degenerative disc disease. 2. Multilevel facet arthropathy. 3. No fracture. No acute osseous lesion. If symptoms and/or clinical suspicion for pathology persists, evaluation with MRI should be considered for further assessment. Dictated by: Jessica Dee MD, PhD on 06/13/2020 at 17:18 Approved by: Jessica Dee MD, PhD on 06/13/2020 at 17:19
[2020-06-13 10:44] LABS: Add Manual Diff / Slide Review NO; Basophils Absolute Auto 100 /uL (0-100); Basophils Percent Auto 1.4 % (0-2); Eosinophils Absolute Auto 200 /uL (0-450); Eosinophils Percent Auto 3.8 % (2-4); Hematocrit 40.6 % (36-46); Hemoglobin 13.7 g/dL (12.0-16.0); Lymphocytes Absolute Auto 1800 /uL (1100-4500); Lymphocytes Percent Auto 40.8 % (25-40); Mean Corpuscular HGB Conc 33.8 % (30-36); Mean Corpuscular Hemoglobin 30.4 PG (26-34); Mean Corpuscular Volume 89.8 fL (80-100); Monocytes Absolute Auto 400 /uL (0-900); Monocytes Percent Auto 9.9 % (3-14); Neutrophils Absolute Auto 2000 /uL (1500-7000); Neutrophils Percent Auto 44.1 % (50-75); Platelet Count 263 X10^3/uL (150-400); Red Blood Cell Count 4.52 X10^6/uL (4.0-5.2); Red Cell Distribution Width 12.5 % (11.6-14.8); White Blood Cell Count 4.5 X10^3/uL (4.5-11.0)
[2020-06-13 11:12] LABS: Alanine Aminotransferase 17 IU/L (<35); Albumin 4.3 g/dL (3.5-5.0); Albumin Globulin Ratio 1.3 (1.0-2.8); Alkaline Phosphatase 98 U/L (38-126); Aspartate Aminotransferase 24 IU/L (14-36); BUN Creatinine Ratio 15.7 (6-22); Bilirubin Total 0.4 mg/dL (0.2-1.3); Blood Urea Nitrogen 14 mg/dL (7-17); Calcium 9.4 mg/dL (8.4-10.2); Carbon Dioxide 29 mmol/L (22-32); Chloride 105 mmol/L (98-107); Estimated Glomerular Filt Rate > 60.0 mL/min (>60); Globulin 3.2 g/dL (1.7-4.1); Glucose 107 mg/dL (70-100); HEMOLYSIS < 15 (0-50); Potassium 4.2 mmol/L (3.4-5.1); Sodium 135 mmol/L (137-145); Total Protein 7.5 g/dL (6.3-8.2)
[2020-06-13 11:16] LABS: Hemoglobin A1C% w Est Avg Glu 5.6 % (4.0-6.0)
[2020-06-13 11:30] LABS: Free T3, Triiodothyronine Free 3.85 pg/mL (2.77-5.27); Free T4, Direct Thyroxine 0.88 ng/dL (0.78-2.19)
[2020-06-13 11:44] LABS: Thyroid Stimulating Hormone 1.24 uIU/mL (0.47-4.68)
== END ==
PROVIDERS: PCP Nurse Practitioner; Referring Provider Nurse Practitioner; Visit Provider Nurse Practitioner
DX: M54.2 Cervicalgia (principal); M25.511 Pain in right shoulder; R00.2 Palpitations; R73.01 Impaired fasting glucose
CPT/HCPCS: 36415; 72040; 80053; 83036; 84439; 84443; 84481; 85025; 93005

== ENCOUNTER → 2020-06-21 15:10 | Outpatient (CLI) | payer OTHER, SELFPAY ==
[2020-04-10 14:18] VITALS: BMI 37.8
--- NOTE | 2020-07-12 07:49 | P.HOLT.S_ITS ---
Detective And Intelligence Analyst Report Referral & Results Date Patient Seen: 06/21/20 Requesting provider: Summer Mckeon Indication: Palpitations Duration of monitoring (days): 7 Diary information: There was 1 patient diary entry and 1 patient triggered event. Both of these events were associated with sinus rhythm only Data: Minimum heart rate identified was 46 beats per minute at 07:05 on 06/24/2020 Maximum sinus heart rate was 145 beats per minute at 12:38 on 06/23/2020 Maximum overall heart rate was 226 beats per minute during a 5 beat run of SVT at 22:56 on 06/21/2020 Less than 1% of identified beats or either ventricular supraventricular ectopic in origin There were 10 runs of SVT/atrial tachycardia with the longest lasting 7 beats at a rate of 113 beats per minute which suggest more atrial tachycardia Impression: Patient with rare very brief runs of SVT/atrial tachycardia No correlation between reported symptoms and any dysrhythmia Clinical correlation suggested
== END ==
PROVIDERS: PCP Nurse Practitioner; Referring Provider Nurse Practitioner; Visit Provider Nurse Practitioner
DX: R00.2 Palpitations (principal)
CPT/HCPCS: 0296T; 0298T

== ENCOUNTER → 2020-08-18 16:28 | Outpatient (CLI) | payer OTHER, SELFPAY ==
[2020-04-10 14:18] VITALS: BMI 37.8
[2020-08-18] MEDS: COVID-19 VACC #1, MRNA(MOD) 100 MCG/0.5 ML VIAL IM (16:44)
== END ==
PROVIDERS: PCP Nurse Practitioner; Visit Provider Internal Medicine
DX: Z23 Encounter for immunization (principal)
CPT/HCPCS: 0011A; 91301

== ENCOUNTER → 2020-09-15 10:57 | Outpatient (CLI) | payer OTHER, SELFPAY ==
[2020-04-10 14:18] VITALS: BMI 37.8
[2020-09-15] MEDS: COVID-19 VACC #2, MRNA(MOD) 100 MCG/0.5 ML VIAL IM (11:04)
== END ==
PROVIDERS: PCP Nurse Practitioner; Visit Provider Internal Medicine
DX: Z23 Encounter for immunization (principal)
CPT/HCPCS: 0012A; 91301

== ENCOUNTER → 2020-12-19 15:14 | Outpatient (CLI) | payer OTHER, SELFPAY ==
[2020-04-10 14:18] VITALS: BMI 37.8
--- NOTE | 2020-12-19 15:15 | DI.RAD.S_ITS ---
PROCEDURE: XR CERVICAL SPINE 2V OR 3V INDICATIONS: neck pain, n/t of ulnar and radial R>L TECHNIQUE: 3 view(s) of the cervical spine were acquired. COMPARISON: [facility], , XR CERVICAL SPINE 2V OR 3V, 06/13/2020, 10:27. FINDINGS: Bones: No fractures or dislocations to the T1 level. The lateral masses of C1 appear intact on the odontoid view. No suspicious bony lesions. Large anterior osteophytes and uncovertebral joint hypertrophy at C6-C7. Mid cervical facet arthropathy. Soft tissues: No prevertebral soft tissue swelling. IMPRESSION: Cervical spondylitic change. No evidence acute bony abnormality of the cervical spine. If clinical suspicion and/or symptoms persist, further assessment with repeat plain films, or advanced imaging (e.g., CT, MRI, or bone scan) may be helpful for further assessment. Dictated by: Sukhwinder Yu M.D. on 12/19/2020 at 16:35 Approved by: Sukhwinder Yu M.D. on 12/19/2020 at 16:38
== END ==
PROVIDERS: PCP Nurse Practitioner; Referring Provider Nurse Practitioner; Visit Provider Nurse Practitioner
DX: M47.812 Spondylosis without myelopathy or radiculopathy, cervical region (principal); M62.838 Other muscle spasm; M54.2 Cervicalgia; R20.0 Anesthesia of skin; R20.2 Paresthesia of skin
CPT/HCPCS: 72040

== ENCOUNTER → 2022-04-12 14:06 | Outpatient (CLI) | payer OTHER, SELFPAY ==
[2020-04-10 14:18] VITALS: BMI 37.8
--- NOTE | 2022-04-12 14:07 | DI.MG.S_ITS ---
BILATERAL DIGITAL SCREENING MAMMOGRAM 3D/2D WITH CAD: 04/12/2022 CLINICAL: Routine screening. Family history of breast cancer. Comparison is made to exams dated: 05/03/2019 mammogram and 10/24/2017 mammogram - Outside facility. There are scattered areas of fibroglandular density in both breasts (category b / 25%-50% glandular tissue). Current study was also evaluated with a Computer Aided Detection (CAD) system. No significant masses, calcifications, or other findings are seen in either breast. There has been no significant interval change. IMPRESSION: NEGATIVE There is no mammographic evidence of malignancy. A 1 year screening mammogram is recommended. Based on the Tyrer Cuzick model (a risk assessment model) the patient's lifetime risk is 8.0% and her 10 year risk is 2.3%. According to the ACR, ACS, and NCCN guidelines, an annual breast MRI exam along with mammogram is recommended if the patient's lifetime risk is 20% or greater. This exam was interpreted at Station ID: [id number]. NOTE: For mammograms, a report in lay terms will be sent to the patient. Approximately 15% of breast malignancies will not be visualized mammographically. In the management of a palpable breast mass, a negative mammogram must not discourage biopsy of a clinically suspicious lesion. Electronically Signed By: Jeffry puckett/carina:04/12/2022 14:55:06 letter sent: Normal Exam ACR BI-RADS Category 1: Negative [id number]
== END ==
PROVIDERS: PCP Nurse Practitioner; Referring Provider Nurse Practitioner; Visit Provider Nurse Practitioner
DX: Z12.31 Encounter for screening mammogram for malignant neoplasm of breast (principal); Z80.3 Family history of malignant neoplasm of breast
CPT/HCPCS: 77063; 77067

== ENCOUNTER → 2022-04-23 10:32 | Outpatient (CLI) | payer OTHER, SELFPAY ==
[2020-04-10 14:18] VITALS: BMI 37.8
== END ==
PROVIDERS: PCP Nurse Practitioner; Referring Provider Nurse Practitioner; Visit Provider Nurse Practitioner
DX: R00.2 Palpitations (principal)
CPT/HCPCS: 93005

== ENCOUNTER → 2022-04-24 14:21 | Outpatient (CLI) | payer OTHER, SELFPAY ==
[2020-04-10 14:18] VITALS: BMI 37.8
--- NOTE | 2022-04-24 14:23 | DI.RAD.S_ITS ---
PROCEDURE: XR CHEST 2V INDICATIONS: cough TECHNIQUE: 2 views of the chest were acquired. COMPARISON: None. FINDINGS: Surgical changes and devices: None. Lungs and pleura: Lungs are clear. No pleural effusions or pneumothorax. Mediastinum: Mediastinal contours are normal. Heart size is normal. Bones and chest wall: No suspicious bony abnormalities. Soft tissues appear unremarkable. IMPRESSION: No acute cardiopulmonary abnormality. Approved by: Matheus Wilcox M.D. on 04/24/2022 at 16:22
[2022-04-24 16:59] LABS: Alanine Aminotransferase 24 IU/L (<35); Albumin 4.4 g/dL (3.5-5.0); Albumin Globulin Ratio 1.3 (1.0-2.8); Alkaline Phosphatase 103 U/L (38-126); Aspartate Aminotransferase 27 IU/L (14-36); BUN Creatinine Ratio 17.4 (6-22); Bilirubin Total 0.4 mg/dL (0.2-1.3); Blood Urea Nitrogen 15 mg/dL (7-17); C-Reactive Protein Quant 0.6 mg/dL (<1.0); Calcium 9.6 mg/dL (8.4-10.2); Carbon Dioxide 29 mmol/L (22-32); Chloride 105 mmol/L (98-107); Cholesterol 265 mg/dL (140-199); Estimated Glomerular Filt Rate > 60 mL/min (>60); Globulin 3.4 g/dL (1.7-4.1); Glucose 90 mg/dL (70-100); HDL Cholesterol 57 mg/dL (40-60); HEMOLYSIS < 15 (0-50); LDL Cholesterol Calculated 175 mg/dL (<100); Potassium 3.8 mmol/L (3.4-5.1); Sodium 142 mmol/L (137-145); Total Protein 7.8 g/dL (6.3-8.2); Triglycerides 163 mg/dL (35-150)
[2022-04-24 17:07] LABS: Rheumatoid Factor < 8.6 IU/mL (<12.0)
[2022-04-24 17:24] LABS: Free T3, Triiodothyronine Free 3.21 pg/mL (2.77-5.27); Free T4, Direct Thyroxine 0.93 ng/dL (0.78-2.19)
[2022-04-24 17:27] LABS: Add Manual Diff / Slide Review NO; Basophils Absolute Auto 0 /uL (0-100); Basophils Percent Auto 0.7 % (0-2); Eosinophils Absolute Auto 200 /uL (0-450); Eosinophils Percent Auto 2.4 % (2-4); Hematocrit 39.6 % (36-46); Hemoglobin 13.5 g/dL (12.0-16.0); Lymphocytes Absolute Auto 2100 /uL (1100-4500); Mean Corpuscular HGB Conc 34.1 % (30-36); Mean Corpuscular Hemoglobin 29.9 PG (26-34); Mean Corpuscular Volume 87.7 fL (80-100); Monocytes Absolute Auto 400 /uL (0-900); Monocytes Percent Auto 6.1 % (3-14); Neutrophils Absolute Auto 4300 /uL (1500-7000); Neutrophils Percent Auto 60.8 % (50-75); Platelet Count 269 X10^3/uL (150-400); Red Blood Cell Count 4.51 X10^6/uL (4.0-5.2); Red Cell Distribution Width 12.8 % (11.6-14.8)
[2022-04-24 17:37] LABS: Thyroid Stimulating Hormone 1.15 uIU/mL (0.47-4.68)
[2022-04-24 18:06] LABS: Erythrocyte Sedimentation Rate 19 MM/HR (0-20)
[2022-04-27 12:53] LABS: ANA Screen, IFA Negative (.)
== END ==
PROVIDERS: PCP Nurse Practitioner; Referring Provider Nurse Practitioner; Visit Provider Nurse Practitioner
DX: R05.9 Cough, unspecified (principal); G89.29 Other chronic pain; Z00.00 Encounter for general adult medical examination without abnormal findings
CPT/HCPCS: 36415; 71046; 80053; 80061; 84439; 84443; 84481; 85025; 85651; 86038; 86140; 86430

== ENCOUNTER → 2022-06-27 09:48 | Outpatient (CLI) | payer OTHER, SELFPAY ==
[2022-04-24 14:37] VITALS: BMI 37.8
--- NOTE | 2022-07-18 07:49 | P.HOLT.S_ITS ---
Data Management Specialist Report Referral & Results Date Patient Seen: 06/27/22 Requesting provider: Summer Mckeon Indication: Palpitations Duration of monitoring (days): 14 Diary information: There was 1 patient triggered event associated with sinus rhythm only Data: Minimum heart rate was 44 beats per minute at 05:42 on 07/06/2022 Maximum sinus heart rate was 153 beats per minute at 11:18 on 07/07/2022 Maximum overall heart rate was 139 beats per minute at 14:17 on 07/04/2022 during a run of SVT Less than 1% of identified beats were ventricular or supraventricular ectopic in origin, which would classify them as rare. There was 1 run nonsustained monomorphic ventricular tachycardia 6 beats in duration There were 4 runs of SVT the fastest being the 5 beat run with above rate of 139 beats per minute the longest lasting 6 beats with an average rate of 90 beats per minute which suggest possible atrial tachycardia rather than true SVT No pauses of 3 seconds or longer or episodes of atrial fibrillation identified on this study Impression: This study demonstrates rare PACs and PVCs without correlation to patient's symptoms. There was a single run of ventricular tachycardia 6 beats in duration Very rare very brief runs of SVT were also identified Clinical correlation suggested
== END ==
PROVIDERS: Family Provider Nurse Practitioner; PCP Nurse Practitioner; Referring Provider Nurse Practitioner; Visit Provider Nurse Practitioner
DX: R00.2 Palpitations (principal); I47.1 Supraventricular tachycardia
CPT/HCPCS: 93246; 93248

== ENCOUNTER → 2022-10-31 13:48 | Outpatient (CLI) | payer OTHER, SELFPAY ==
[2022-10-09 09:38] VITALS: BMI 37.8
--- NOTE | 2022-10-31 13:50 | DI.RAD.S_ITS ---
PROCEDURE: XR SHOULDER RT MIN 2V INDICATIONS: right shoulder pain TECHNIQUE: 3 views of the shoulder were acquired. COMPARISON: None. FINDINGS: Bones: No fractures or dislocations. No suspicious bony lesions. Visualized ribs appear intact. Soft tissues: No suspicious soft tissue calcifications. IMPRESSION: No visualized acute fracture or dislocation. However, if clinical concern and/or pain persist, short interval imaging followup in 7-10 days is recommended, as occult injury cannot be definitively excluded. Dictated by: Jennifer Holliday M.D. on 10/31/2022 at 16:24 Approved by: Jennifer Holliday M.D. on 10/31/2022 at 16:24
== END ==
PROVIDERS: Family Provider Nurse Practitioner; PCP Nurse Practitioner; Referring Provider Nurse Practitioner; Visit Provider Nurse Practitioner
DX: M25.511 Pain in right shoulder (principal)
CPT/HCPCS: 73030

== ENCOUNTER → 2022-11-12 10:33 | Outpatient (CLI) | payer OTHER, SELFPAY ==
[2022-10-09 09:38] VITALS: BMI 37.8
--- NOTE | 2022-11-12 10:34 | DI.MRI.S_ITS ---
PROCEDURE: MR SHOULDER RT WO CON INDICATIONS: Right shoulder pain > 3 mos duration TECHNIQUE: Noncontrast oblique coronal T2 fast spin echo with fat saturation, oblique sagittal T1 spin echo and T2 fast spin echo with fat saturation, axial T1 spin echo and T2 fast spin echo with fat saturation through the shoulder. COMPARISON: None. FINDINGS: Image quality: Excellent. Rotator cuff: There is mild T2 signal elevation throughout the supraspinatus and infraspinatus tendons at the humeral insertion sites extending the musculotendinous junctions, indicating tendinopathy. The supraspinatus, infraspinatus, and subscapularis tendons appear intact throughout. Sagittal images demonstrate no muscle atrophy. Bones and bursae: No bone marrow contusions or fractures. Mild glenohumeral and moderate acromioclavicular joint degeneration. The acromion demonstrates conventional anatomy, without an os acromiale. No pathologic subacromial-subdeltoid or subcoracoid bursal fluid is present. Capsule and soft tissues: There is undercutting of the posterior labrum. The long head of the biceps tendon demonstrates normal location . Moderate T2 signal elevation within the proximal biceps tendon.. The rotator interval appears normal, without fibrosis. The coracohumeral ligament is normal in thickness. IMPRESSION: 1. Supraspinatus and infraspinatus tendinopathy. No rotator cuff tear. 2. Acromioclavicular and glenohumeral joint osteoarthritis. 3. Glenoid labral tearing. 4. Biceps tendinopathy. Dictated by: Maximiliano Jones M.D. on 11/12/2022 at 10:59 Transcribed by: ZION on 11/12/2022 at 11:00 Approved by: Maximiliano Jones M.D. on 11/12/2022 at 15:33
== END ==
PROVIDERS: Family Provider Nurse Practitioner; PCP Nurse Practitioner; Referring Provider Nurse Practitioner; Visit Provider Nurse Practitioner
DX: M25.511 Pain in right shoulder (principal); M19.011 Primary osteoarthritis, right shoulder; S43.431A Superior glenoid labrum lesion of right shoulder, initial encounter
CPT/HCPCS: 73221

== ENCOUNTER 2023-05-16 10:09 | Emergency (ER) | payer OTHER, SELFPAY ==
[2022-10-09 09:38] VITALS: BMI 37.8
[2023-05-16 10:12] VITALS: BP 133/82; PULSE 95; RESP 16; TEMP 36.5; O2SAT 99; BMI 36.6
--- NOTE | 2023-05-16 10:18 | DI.US.S_ITS ---
PROCEDURE: US PERIPH VENOUS LOW EXTREM RT INDICATIONS: RIGHT CALF PAIN TECHNIQUE: Real-time imaging, as well as color and pulse Doppler interrogation, were performed of the lower extremity deep veins from the inguinal ligament to the popliteal fossa, with documentation of the visualized calf veins. COMPARISON: None. FINDINGS: The common femoral, femoral, popliteal, and the visualized calf veins are normally compressible, and free of intraluminal thrombus. Color and pulse Doppler demonstrate normal phasic intraluminal flow. There is normal augmentation response to distal compression maneuver. IMPRESSION: No findings of lower extremity deep venous thrombosis. Dictated by: Mike Mendoza M.D. on 05/16/2023 at 9:48 Approved by: Mike Mendoza M.D. on 05/16/2023 at 9:48
--- NOTE | 2023-05-16 11:09 | ED.EXTPRO ---
HPI - Extremity Problem General Chief complaint: Extremity Problem,Nontraumatic Stated complaint: right-sided calf pain, post-op day 7 Time Seen by Provider: 05/16/23 11:08 Mode of arrival: Ambulatory History of Present Illness HPI Narrative: Right-sided calf pain for 24 hours, no swelling no chest pain or shortness of breath. She had foot surgery 1 week ago, is taking aspirin presumably for DVT prophylaxis. Foot surgery was on the right side. No history of pulmonary embolism or DVT. Related Data Home Medications Medication Instructions Recorded Confirmed ibuprofen 600 mg tablet See Rx Instructions PO .PRN PRN 12/11/22 12/11/22 omeprazole 40 mg capsule,delayed 40 mg PO .HSP 05/07/23 05/07/23 release Previous Rx's Medication Instructions Recorded oral appliance #1 ea 03/07/20 estradiol 0.05 mg/24 hr semiweekly 1 patch transdermal 2XW #24 ea 09/02/22 transdermal patch triamcinolone acetonide 0.1 % 1 applic topical BID #80 grams 12/11/22 topical ointment semaglutide 0.25 mg or 0.5 mg (2 0.25 mg (0.4 mL) SUBCUT QWEEK #3 mL 12/26/22 mg/3 mL) subcutaneous pen injector pen needle, diabetic 30 gauge x #20 ea 04/11/2311/05 (Easy Touch Pen Needle) duloxetine 60 mg capsule,delayed 60 mg PO BID #180 caps 05/07/23 release Allergies Allergy/AdvReac Type Severity Reaction Status Date / Time erythromycin base Allergy Mild v/n Verified 05/07/23 11:13 povidone-iodine Allergy Mild Rash Verified 05/07/23 11:13 [From Betadine] soap [From Betadine] Allergy Mild Rash Verified 05/07/23 11:13 Patient History Medical History Ventricular tachycardia (paroxysmal) Atrial tachycardia PSVT (paroxysmal supraventricular tachycardia) Right shoulder pain Palpitations Deviated septum Urinary incontinence Impaired fasting glucose Hyperlipidemia Pelvic floor relaxation Pneumonia (~2015) Elbow pain (~2018) Obesity (BMI 35.0-39.9 without comorbidity) Depression Rosacea (~2019) Eczema Sleep apnea (~2018) Bilateral elbow joint pain Positive PPD Irregular menstrual cycle (~2017) Stress incontinence (~2017) GERD (gastroesophageal reflux disease) (~2014) Perimenopause Surgical History Anesthesia History of meniscectomy of right knee (~2015) History of reduction mammoplasty (~2008) History of radial keratotomy (~1997) Family History Father Diabetes mellitus History of heart disease Hypertension Mother Hyperlipidemia Thyroid condition Brother Diabetes mellitus Obesity Sister Lupus Obesity Prediabetes Sister Thyroid condition History of hip replacement Sister PCOS (polycystic ovarian syndrome) Anxiety Mental health problem Social History household members: spouse Smoking Status: Never smoker Smoking Status: Never smoker alcohol intake frequency: a few times a week Substance Use Type: does not use Exam Initial Vital Signs Initial Vital Signs: Vital Signs Temperature 97.7 F 05/16/23 10:12 Pulse Rate 95 H 05/16/23 10:12 Respiratory Rate 16 05/16/23 10:12 Blood Pressure 133/82 05/16/23 10:12 Pulse Oximetry 99 05/16/23 10:12 Oxygen Delivery Method Room Air 05/16/23 10:12 Const General: No acute distress Resp Effort & Inspection: normal respiratory effort Auscultation: clear to auscultation bilaterally Cardio Rate: regular rate Rhythm: regular rhythm Skin General: no rashes or lesions noted Neuro General: patient alert and patient oriented x3 Extrem Other: There is an operative wound on the dorsum of her right foot. Appears to be healing well. Pulses are intact capillary refill and light touch sensation are intact. No palpable cords mild calf tenderness Course Orders Ordered: ED Orders 05/16/23 10:18 US periph venous low extrem rt Stat Vital Signs Vital signs: Vital Signs - 8 hr 05/16/23 10:12 Temperature 97.7 F Pulse Rate 95 H Respiratory Rate 16 Blood Pressure 133/82 Pulse Oximetry 99 Oxygen Delivery Method Room Air MDM - Extremity (Nontraumatic) Imaging Data US - DVT: Radiologist's Impression: No DVT of the right lower extremity MDM Narrative Medical decision making narrative: 57-year-old female with calf pain concerning for DVT 1 week after a foot surgery. No evidence of pulmonary embolism no evidence of cellulitis arterial circulation is intact based on pulses. Ultrasound is negative for DVT Discharge Plan Departure Patient Disposition: Home Clinical Impression: Calf cramp Activity Restrictions/Additional Instructions: No DVT is seen on ultrasound. I think it is safe to continue your previous home medications gentle [id number] exercises and massage. Recheck in the emergency department for increasing redness or swelling of your foot shortness of breath chest pain or other acute symptoms. Prescriptions: No Action (DME) oral appliance Qty: 1 0RF Rx Instructions: As directed estradiol 0.05 mg/24 hr patch semiweekly 1 patch transdermal 2XW Qty: 24 3RF Rx Instructions: apply 1 patch to lower abd or hip twice a week semaglutide 0.25 mg or 0.5 mg (2 mg/3 mL) pen injector 0.25 mg SUBCUT QWEEK Qty: 3 0RF Rx Instructions: 5mg/mL compounded, 0.25mg weekly injection ([facility] in [place]). (DME) pen needle, diabetic [Easy Touch Pen Needle] 30 gauge x 5/16 needle See Rx Instructions .Route Qty: 20 0RF Rx Instructions: As directed omeprazole 40 mg capsule,delayed release(DR/EC) 40 mg PO .HSP duloxetine 60 mg capsule,delayed release(DR/EC) 60 mg PO BID Qty: 180 3RF ibuprofen 600 mg tablet See Rx Instructions PO .PRN PRN Rx Instructions: Take 600-800mg three to four times weekly as needed for pain triamcinolone acetonide 0.1 % ointment 1 applic topical BID Qty: 80 3RF Referrals: Summer Mckeon ARNP [Primary Care Provider] - Stand Alone Forms: Patient Portal/API
[2023-05-16 11:19] VITALS: BP 132/68; PULSE 88; RESP 16; TEMP 36.7; O2SAT 98
== END 2023-05-16 11:20 | disposition home or self-care (01) ==
PROVIDERS: Emergency Provider Emergency Medicine; Family Provider Nurse Practitioner; PCP Nurse Practitioner
DX: R25.2 Cramp and spasm (principal)
CPT/HCPCS: 93971; 99282; 99283

== ENCOUNTER → 2023-05-20 12:58 | Outpatient (CLI) | payer OTHER, SELFPAY ==
[2022-10-09 09:38] VITALS: BMI 37.8
--- NOTE | 2023-05-20 13:00 | DI.RAD.S_ITS ---
PROCEDURE: XR LUMBAR SPINE MIN 4V INDICATIONS: right leg pain and weakness TECHNIQUE: 5 views of the lumbar spine were acquired, including bilateral oblique views. COMPARISON: None. FINDINGS: Bones: 5 nonrib-bearing vertebrae are present. There is normal bony alignment. No vertebral body compression fractures. No suspicious bony lesions. Mild to moderate disc height loss at all levels. Facet arthrosis L4-5 and L5-S1. Soft tissues: Overlying bowel gas pattern is normal. No suspicious soft tissue calcifications. Oblique images: No pars defects. IMPRESSION: Mewu-nk-srfoygyy degenerative disc disease and lower lumbar facet arthrosis. Dictated by: Ritchie Sargent M.D. on 05/20/2023 at 15:55 Approved by: Ritchie Sargent M.D. on 05/20/2023 at 15:56
== END ==
PROVIDERS: Family Provider Nurse Practitioner; PCP Nurse Practitioner; Referring Provider Nurse Practitioner; Visit Provider Nurse Practitioner
DX: R29.898 Other symptoms and signs involving the musculoskeletal system (principal); R10.31 Right lower quadrant pain; M51.36 Other intervertebral disc degeneration, lumbar region; M47.816 Spondylosis without myelopathy or radiculopathy, lumbar region
CPT/HCPCS: 72110

== ENCOUNTER → 2023-05-27 11:56 | Outpatient (CLI) | payer OTHER, SELFPAY ==
[2022-10-09 09:38] VITALS: BMI 37.8
--- NOTE | 2023-05-27 11:56 | DI.MG.S_ITS ---
BILATERAL DIGITAL SCREENING MAMMOGRAM 3D/2D WITH CAD: 05/27/2023 CLINICAL: Routine screening. Family history of breast cancer. Comparison is made to exams dated: 04/12/2022 mammogram - [facility], 05/03/2019 mammogram, and 10/24/2017 mammogram - Outside facility. There are scattered areas of fibroglandular density in both breasts (category b / 25%-50% glandular tissue). Current study was also evaluated with a Computer Aided Detection (CAD) system. There are benign calcifications in the right breast. No significant masses, calcifications, or other findings are seen in either breast. There has been no significant interval change. IMPRESSION: BENIGN There is no mammographic evidence of malignancy. A 1 year screening mammogram is recommended. Based on the Tyrer Cuzick model (a risk assessment model) the patient's lifetime risk is 8.0% and her 10 year risk is 2.4%. According to the ACR, ACS, and NCCN guidelines, an annual breast MRI exam along with mammogram is recommended if the patient's lifetime risk is 20% or greater. This exam was interpreted at Station ID: [id number]. NOTE: For mammograms, a report in lay terms will be sent to the patient. Approximately 15% of breast malignancies will not be visualized mammographically. In the management of a palpable breast mass, a negative mammogram must not discourage biopsy of a clinically suspicious lesion. Electronically Signed By: Jeffry puckett/carina:05/27/2023 13:37:52 letter sent: Normal Exam ACR BI-RADS Category 2: Benign Finding(s) 3342F
== END ==
PROVIDERS: Family Provider Nurse Practitioner; PCP Nurse Practitioner; Referring Provider Nurse Practitioner; Visit Provider Nurse Practitioner
DX: Z12.31 Encounter for screening mammogram for malignant neoplasm of breast (principal); Z80.3 Family history of malignant neoplasm of breast
CPT/HCPCS: 77063; 77067

== ENCOUNTER → 2023-10-02 11:30 | Outpatient (CLI) | payer OTHER, SELFPAY ==
[2022-10-09 09:38] VITALS: BMI 37.8
[2023-10-02 12:33] LABS: Add Manual Diff / Slide Review NO; Basophils Absolute Auto 100 /uL (0-100); Eosinophils Absolute Auto 300 /uL (0-450); Hematocrit 39.9 % (36-46); Hemoglobin 13.4 g/dL (12.0-16.0); Lymphocytes Absolute Auto 1900 /uL (1100-4500); Lymphocytes Percent Auto 37.6 % (25-40); Mean Corpuscular HGB Conc 33.5 % (30-36); Mean Corpuscular Hemoglobin 30.1 PG (26-34); Mean Corpuscular Volume 89.8 fL (80-100); Monocytes Absolute Auto 500 /uL (0-900); Monocytes Percent Auto 9.6 % (3-14); Neutrophils Absolute Auto 2400 /uL (1500-7000); Neutrophils Percent Auto 46.8 % (50-75); Platelet Count 263 X10^3/uL (150-400); Red Blood Cell Count 4.45 X10^6/uL (4.0-5.2); Red Cell Distribution Width 12.8 % (11.6-14.8); White Blood Cell Count 5.2 X10^3/uL (4.5-11.0)
[2023-10-02 13:31] LABS: Alanine Aminotransferase 22 IU/L (<35); Albumin 4.2 g/dL (3.5-5.0); Albumin Globulin Ratio 1.4 (1.0-2.8); Alkaline Phosphatase 95 U/L (38-126); Aspartate Aminotransferase 26 IU/L (14-36); BUN Creatinine Ratio 21.1 (6-22); Bilirubin Total 0.7 mg/dL (0.2-1.3); Blood Urea Nitrogen 16 mg/dL (7-17); Calcium 9.5 mg/dL (8.4-10.2); Carbon Dioxide 27 mmol/L (22-32); Chloride 107 mmol/L (98-107); Cholesterol 220 mg/dL (140-199); Estimated Glomerular Filt Rate > 60 mL/min (>60); Glucose 97 mg/dL (70-100); HDL Cholesterol 55 mg/dL (40-60); HEMOLYSIS < 15 (0-50); LDL Cholesterol Calculated 144 mg/dL (<100); Potassium 4.3 mmol/L (3.4-5.1); Sodium 137 mmol/L (137-145); Total Protein 7.2 g/dL (6.3-8.2); Triglycerides 106 mg/dL (35-150)
[2023-10-02 14:28] LABS: HIV 1 & 2 Ab/Ag 4th Gen Combo NEGATIVE (NEGATIVE); Hep C Virus Ab w/Reflex Quant NEGATIVE s/c (NEGATIVE)
[2023-10-02 17:34] LABS: Hemoglobin A1C% w Est Avg Glu 5.2 % (4.0-6.0)
[2023-10-03 05:40] LABS: Free T4, Direct Thyroxine 0.99 ng/dL (0.78-2.19)
[2023-10-03 05:53] LABS: Thyroid Stimulating Hormone 1.42 uIU/mL (0.47-4.68)
== END ==
PROVIDERS: Family Provider Nurse Practitioner; PCP Nurse Practitioner; Referring Provider Nurse Practitioner; Visit Provider Nurse Practitioner
DX: Z00.00 Encounter for general adult medical examination without abnormal findings (principal); Z11.4 Encounter for screening for human immunodeficiency virus [HIV]; Z11.59 Encounter for screening for other viral diseases
CPT/HCPCS: 36415; 80053; 80061; 83036; 84439; 84443; 84481; 85025; 86803; 87389

== ENCOUNTER → 2023-10-27 11:55 | Outpatient (CLI) | payer OTHER, SELFPAY ==
[2022-10-09 09:38] VITALS: BMI 37.8
[2023-10-27 13:16] LABS: Add Manual Diff / Slide Review NO; Basophils Absolute Auto 0 /uL (0-100); Basophils Percent Auto 0.3 % (0-2); Eosinophils Absolute Auto 100 /uL (0-450); Hematocrit 40.9 % (36-46); Hemoglobin 13.7 g/dL (12.0-16.0); Lymphocytes Absolute Auto 1000 /uL (1100-4500); Lymphocytes Percent Auto 27.9 % (25-40); Mean Corpuscular HGB Conc 33.4 % (30-36); Mean Corpuscular Hemoglobin 29.7 PG (26-34); Mean Corpuscular Volume 88.9 fL (80-100); Monocytes Absolute Auto 400 /uL (0-900); Monocytes Percent Auto 11.6 % (3-14); Neutrophils Absolute Auto 2200 /uL (1500-7000); Neutrophils Percent Auto 58.2 % (50-75); Platelet Count 238 X10^3/uL (150-400); Red Blood Cell Count 4.61 X10^6/uL (4.0-5.2); Red Cell Distribution Width 13.1 % (11.6-14.8); White Blood Cell Count 3.7 X10^3/uL (4.5-11.0)
[2023-10-27 13:28] LABS: Alanine Aminotransferase 21 IU/L (<35); Albumin 4.6 g/dL (3.5-5.0); Albumin Globulin Ratio 1.5 (1.0-2.8); Alkaline Phosphatase 85 U/L (38-126); Amylase 72 U/L (30-110); Aspartate Aminotransferase 27 IU/L (14-36); BUN Creatinine Ratio 14.3 (6-22); Bilirubin Total 0.6 mg/dL (0.2-1.3); Blood Urea Nitrogen 11 mg/dL (7-17); Calcium 8.9 mg/dL (8.4-10.2); Carbon Dioxide 29 mmol/L (22-32); Chloride 101 mmol/L (98-107); Estimated Glomerular Filt Rate > 60 mL/min (>60); Glucose 104 mg/dL (70-100); HEMOLYSIS < 15 (0-50); Lipase 54 U/L (23-300); Potassium 3.4 mmol/L (3.4-5.1); Sodium 136 mmol/L (137-145); Total Protein 7.6 g/dL (6.3-8.2)
[2023-10-27 15:50] LABS: Appearance Urine UA CLEAR; Bilirubin Urine UA NEGATIVE (NEGATIVE); Color Urine UA YELLOW; Glucose Urine UA NEGATIVE (Negative); Ketones Urine UA TRACE (NEGATIVE); Leukocyte Esterase Urine UA NEGATIVE (NEGATIVE); Nitrite Urine UA NEGATIVE (Negative); Occult Blood Urine UA NEGATIVE (Negative); Protein Urine UA TRACE (Negative)
[2023-10-27 15:51] LABS: pH Urine UA 6.5 (4.5-8.0)
[2023-10-27 15:59] LABS: Bacteria Urine Moderate (10-30); Mucus Urine 2+ (Negative); RBC Urine None Seen (0-5/HPF); Squamous Epithelial Cell Urine 0-1 /HPF (0-5/HPF); Urine Volume 10mL (spun); WBC Urine 0-1/HPF (0-5/HPF)
[2023-10-27 16:00] LABS: Culture Indicated Urine Cult Not Indicated
[2023-10-28 09:29] LABS: Interpretation Negative (Negative)
== END ==
PROVIDERS: Family Provider Nurse Practitioner; PCP Nurse Practitioner; Referring Provider Registered Nurse Diabetes Educator; Visit Provider Registered Nurse Diabetes Educator
DX: R11.2 Nausea with vomiting, unspecified (principal); R10.9 Unspecified abdominal pain
CPT/HCPCS: 80053; 81001; 82150; 83013; 83690; 85025

== ENCOUNTER 2023-10-28 11:15 | Emergency (ER) | payer OTHER, SELFPAY ==
[2022-10-09 09:38] VITALS: BMI 37.8
[2023-10-28] VITALS (21 sets, daily range): BP systolic 95–122; BP diastolic 55–78; PULSE 59–88; RESP 12–23; TEMP 36.4–36.6; O2SAT 95–100; BMI 36.4
[2023-10-28 11:47] LABS: Add Manual Diff / Slide Review NO; Basophils Absolute Auto 0 /uL (0-100); Basophils Percent Auto 0.5 % (0-2); Eosinophils Absolute Auto 100 /uL (0-450); Eosinophils Percent Auto 2.6 % (2-4); Hematocrit 39.8 % (36-46); Hemoglobin 13.5 g/dL (12.0-16.0); Lymphocytes Absolute Auto 1300 /uL (1100-4500); Lymphocytes Percent Auto 28.3 % (25-40); Mean Corpuscular HGB Conc 33.9 % (30-36); Mean Corpuscular Hemoglobin 29.9 PG (26-34); Mean Corpuscular Volume 88.2 fL (80-100); Monocytes Absolute Auto 600 /uL (0-900); Monocytes Percent Auto 12.5 % (3-14); Neutrophils Absolute Auto 2600 /uL (1500-7000); Neutrophils Percent Auto 56.1 % (50-75); Platelet Count 246 X10^3/uL (150-400); Red Blood Cell Count 4.51 X10^6/uL (4.0-5.2); Red Cell Distribution Width 13.2 % (11.6-14.8); White Blood Cell Count 4.6 X10^3/uL (4.5-11.0)
[2023-10-28 11:58] LABS: Alanine Aminotransferase 21 IU/L (<35); Albumin 4.4 g/dL (3.5-5.0); Albumin Globulin Ratio 1.5 (1.0-2.8); Alkaline Phosphatase 88 U/L (38-126); Aspartate Aminotransferase 31 IU/L (14-36); BUN Creatinine Ratio 16.2 (6-22); Bilirubin Total 0.5 mg/dL (0.2-1.3); Blood Urea Nitrogen 11 mg/dL (7-17); Carbon Dioxide 25 mmol/L (22-32); Chloride 105 mmol/L (98-107); Estimated Glomerular Filt Rate > 60 mL/min (>60); Globulin 2.9 g/dL (1.7-4.1); Glucose 111 mg/dL (70-100); HEMOLYSIS < 15 (0-50); Lipase 76 U/L (23-300); Potassium 3.4 mmol/L (3.4-5.1); Sodium 137 mmol/L (137-145); Total Protein 7.3 g/dL (6.3-8.2)
--- NOTE | 2023-10-28 12:12 | ED.ABDPAIN ---
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 Awoke Friday morning with this pain and had nausea. Pain is worse with eating. Patient ran out of omeprazole about a week ago. It was refilled by primary care during her visit yesterday. Has had 2 doses since then. Has history of acid reflux. Patient still has her gallbladder. Denies any chest pain. Has not been able to eat or drink very much as eating and drinking has made it worse. Blood pressure noted. She is felt lightheaded. EKG noted does have prolongation QT. she is on Zofran by primary care. I instructed her to stop taking it as it will prolonged QT with Zofran. No urinary complaints. Related Data Home Medications Medication Instructions Recorded Confirmed ibuprofen 600 mg tablet See Rx Instructions PO .PRN PRN 12/11/22 09/25/23 Previous Rx's Medication Instructions Recorded triamcinolone acetonide 0.1 % 1 applic topical BID #80 grams 12/11/22 topical ointment pen needle, diabetic 30 gauge x #20 ea 04/11/2311/05 (Easy Touch Pen Needle) duloxetine 60 mg capsule,delayed 60 mg PO BID #180 caps 05/07/23 release semaglutide 2 mg/dose (8 mg/3 mL) 2 mg (0.75 mL) SUBCUT QWEEK #3 mL 09/25/23 subcutaneous pen injector estradiol 0.05 mg/24 hr semiweekly 1 patch transdermal 2XW #24 ea 10/17/23 transdermal patch omeprazole 40 mg capsule,delayed 40 mg PO DAILY #30 caps 10/27/23 release omeprazole 40 mg capsule,delayed 40 mg PO DAILY #90 caps 10/27/23 release sucralfate 1 gram tablet (Carafate) 1 g PO BID #180 tabs 10/29/23 celecoxib 100 mg capsule (Celebrex) 100 mg PO BID #180 caps 11/06/23 Allergies Allergy/AdvReac Type Severity Reaction Status Date / Time povidone-iodine Allergy Mild Rash Verified 10/28/23 11:19 [From Betadine] soap [From Betadine] Allergy Mild Rash Verified 10/28/23 11:19 ondansetron Allergy Verified 10/28/23 15:33 erythromycin base AdvReac Mild v/n Verified 10/28/23 11:24 Review of Systems Review of Systems Narrative: GENERAL: negative chills, fatigue, malaise, fever, sweats. HEENT: negative sinus pain, ear pain, sore throat RESPIRATORY: negative dyspnea, cough CARDIOVASCULAR: negative chest pain, palpitations GASTROINTESTINAL: Positive nausea, vomiting, abdominal pain : negative dysuria, frequency, hematuria MUSCULOSKELETAL: negative muscle or bony pain SKIN: negative rash, skin lesions NEUROLOGIC: negative weakness, numbness Patient History Medical History Labral tear of right hip joint Weakness of right lower extremity Lumbar spondylosis Dorsalgia Lumbar radiculopathy Right hip pain Ventricular tachycardia (paroxysmal) Atrial tachycardia PSVT (paroxysmal supraventricular tachycardia) Right shoulder pain Palpitations Deviated septum Urinary incontinence Impaired fasting glucose Hyperlipidemia Pelvic floor relaxation Pneumonia (~2015) Elbow pain (~2018) Obesity (BMI 35.0-39.9 without comorbidity) Depression Rosacea (~2019) Eczema Sleep apnea (~2018) Bilateral elbow joint pain Positive PPD Irregular menstrual cycle (~2017) Stress incontinence (~2017) GERD (gastroesophageal reflux disease) (~2014) Perimenopause Surgical History Anesthesia History of meniscectomy of right knee (~2015) History of reduction mammoplasty (~2008) History of radial keratotomy (~1997) Family History Father Diabetes mellitus History of heart disease Hypertension Mother Hyperlipidemia Thyroid condition Brother Diabetes mellitus Obesity Sister Lupus Obesity Prediabetes Sister Thyroid condition History of hip replacement Sister PCOS (polycystic ovarian syndrome) Anxiety Mental health problem Social History household members: spouse Smoking Status: Never smoker Smoking Status: Never smoker alcohol intake frequency: a few times a week Substance Use Type: does not use Exam Narrative Exam Narrative: GENERAL: in no distress, not toxic not dyspneic HEAD: Normocephalic. EYES: Pupils equal round ENT: Mucous membranes moist. NECK: Trachea midline. CARDIOVASCULAR: Regular rate and rhythm RESPIRATORY: Clear to auscultation. Breath sounds equal bilaterally. No wheezes, rales, or rhonchi. GASTROINTESTINAL: Abdomen soft, non-tender, no right upper quadrant tenderness. Negative Lima's sign. No CVA tenderness. No pain out of proportion to exam. Bowel sounds are present. No peritoneal signs. EXTREMITIES: No gross deformities. BACK: No flank tenderness. NEURO: AOx4. SKIN: Warm and dry PSYCH: Not anxious, is cooperative Initial Vital Signs Initial Vital Signs: Vital Signs Temperature 97.5 F L 10/28/23 11:19 Pulse Rate 88 10/28/23 11:19 Respiratory Rate 18 10/28/23 11:19 Blood Pressure 120/70 10/28/23 11:19 Pulse Oximetry 96 10/28/23 11:19 Oxygen Delivery Method Room Air 10/28/23 11:19 Course Orders Ordered: Discontinued Medications Sodium Chloride (Normal Saline 0.9%) 1,000 mls @ 1,000 mls/hr IV BOLUS ONE Stop: 10/28/23 13:10 Last Infusion: 10/28/23 13:28 Dose: Infused Documented By: Admin: 10/28/23 12:22 Dose: 1,000 mls/hr Documented By: СЕРГЕЙ Sodium Chloride (Normal Saline 0.9%) 1,000 mls @ 1,000 mls/hr IV BOLUS ONE Stop: 10/28/23 15:17 Last Infusion: 10/28/23 15:43 Dose: Infused Documented By: СЕРГЕЙ Admin: 10/28/23 14:23 Dose: 1,000 mls/hr Documented By: MOUNA Ondansetron HCl (Ondansetron 4 Mg/2 Ml Inj) 4 mg IV NOW PRN PRN Reason: Nausea And Vomiting Vital Signs Vital signs: Vital Signs - 8 hr 10/28/23 11:19 10/28/23 14:13 10/28/23 15:29 Temperature 97.5 F L Pulse Rate 88 75 Pulse Rate [Orthostatic Lying] 62 Pulse Rate [Orthostatic Sitting] 83 Pulse Rate [Orthostatic Standing] 77 Respiratory Rate 18 16 Blood Pressure 120/70 96/58 L Blood Pressure [Orthostatic Lying] 108/62 Blood Pressure [Orthostatic Sitting] 122/78 Blood Pressure [Orthostatic Standing] 115/70 Pulse Oximetry 96 99 Oxygen Delivery Method Room Air Room Air MDM - Abdominal Pain Lab Data 10/28/23 11:39 10/28/23 11:39 Labs: Lab Results 10/28/23 Range/Units 11:39 WBC 4.6 (4.5-11.0) X10^3/uL RBC 4.51 (4.0-5.2) X10^6/uL Hgb 13.5 (12.0-16.0) g/dL Hct 39.8 (36-46) % MCV 88.2 (80-100) fL MCH 29.9 (26-34) PG MCHC 33.9 (30-36) % RDW 13.2 (11.6-14.8) % Plt Count 246 (150-400) X10^3/uL Neut % (Auto) 56.1 (50-75) % Lymph % (Auto) 28.3 (25-40) % [place] % (Auto) 12.5 (3-14) % Eos % (Auto) 2.6 (2-4) % Baso % (Auto) 0.5 (0-2) % Neut # (Auto) 2600 (1299-2395) /uL Lymph # (Auto) 1300 (0001-6992) /uL [place] # (Auto) 600 (0-900) /uL Eos # (Auto) 100 (0-450) /uL Baso # (Auto) 0 (0-100) /uL Sodium 137 (137-145) mmol/L Potassium 3.4 (3.4-5.1) mmol/L Chloride 105 (98-107) mmol/L Carbon Dioxide 25 (22-32) mmol/L BUN 11 (7-17) mg/dL Creatinine 0.68 (0.52-1.04) mg/dL Estimated GFR > 60 (>60) mL/min BUN/Creatinine Ratio 16.2 (6-22) Glucose 111 H (70-100) mg/dL Calcium 9.0 (8.4-10.2) mg/dL Total Bilirubin 0.5 (0.2-1.3) mg/dL AST 31 (14-36) IU/L ALT 21 (<35) IU/L Alkaline Phosphatase 88 (38-126) U/L Total Protein 7.3 (6.3-8.2) g/dL Albumin 4.4 (3.5-5.0) g/dL Globulin 2.9 (1.7-4.1) g/dL Albumin/Globulin Ratio 1.5 (1.0-2.8) Lipase 76 (23-300) U/L Point of care testing: Urine Dip Bedside Urine Glucose Negative Bedside Urine Bilirubin - Negative Bedside Urine Ketone - Negative Urine Specific [place] 1.015 Bedside Urine Occult Blood - Negative Bedside Urine pH 6.0 Bedside Urine Protein - Negative Bedside Urine Urobilinogen - Negative Bedside Urine Nitrite - Negative Bedside Urine Leukocytes - Negative Esterase Imaging Data US - abdomen: Radiologist's Impression: [address] [address] Ultrasound Report Signed Patient: Allyson Cuellar MR#: [id number] : 1965 Acct:[id number] Age/Sex: 58 / F Date of Service: 10/28/23 Loc: ED Accession Number: [id number] Procedure: US abdomen limited Ordering Provider: Qamar Sanchez MD PROCEDURE: US ABDOMEN LIMITED INDICATIONS: Right upper quadrant pain. Attention gallbladder TECHNIQUE: Real-time scanning was performed of the abdominal and retroperitoneal organs, with image documentation. COMPARISON: None. FINDINGS: Liver: Liver is normal in size and homogeneous in echotexture. Gallbladder: No gallstones. No wall thickening. No pericholecystic edema. Negative sonographic Lima's sign. Biliary ducts: Intrahepatic bile ducts are non-dilated. Extrahepatic bile duct caliber measures 4 mm. Normal is 6-7 mm or less in diameter, or 10 mm or less post-cholecystectomy. Pancreas: Visualized portions of the pancreas are sonographically normal. Miscellaneous: No free abdominal fluid. IMPRESSION: Normal sonographic appearance of the liver and gallbladder. No evidence for cholelithiasis or acute cholecystitis. No biliary ductal dilatation. Dictated by: Vinh Hicks M.D. on 10/28/2023 at 13:32 Approved by: Vinh Hicks M.D. 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 Awoke Friday morning with this pain and had nausea. Pain is worse with eating. Patient ran out of omeprazole about a week ago. It was refilled by primary care during her visit yesterday. Has had 2 doses since then. Has history of acid reflux. Patient still has her gallbladder. Denies any chest pain. Has not been able to eat or drink very much as eating and drinking has made it worse. Blood pressure noted. She is felt lightheaded. EKG noted does have prolongation QT. she is on Zofran by primary care. I instructed her to stop taking it as it will prolonged QT with Zofran. No urinary complaints. After history and exam CBC CMP lipase gallbladder ultrasound normal saline, no pain at this time MDM Medical records reviewed: Laboratory studies office notes from yesterday Differential considered: Includes but not limited to cholelithiasis cholecystitis biliary dyskinesia gastritis acid reflux pancreatitis Lab Test results independently reviewed as above. Pertinent findings: WBC 4.6 hemoglobin 13.5 sodium 137 potassium 3.4 AST 31 ALT 21 total bilirubin 0.5 lipase 76 Independently reviewed EKG sinus rhythm rate 77 prolonged QT, QT 488 QTC 552 Repeat EKG at 3:24 p.m.. Sinus bradycardia rate 59 QT 458, QTC 453, shows improvement Imaging studies independently reviewed: Abdominal ultrasound no acute finding Consultations: None indicated at this time Treatments: Normal saline Re-evaluations: 3:30 p.m.. Patient feeling much better. Orthostatics completed and not dizzy. Normal saline provided here. Has been pain-free and no nausea or vomiting. Reviewed with patient will need outpatient HIDA scan as well as possible EGD for her symptoms. Referral for General surgery will be provided. Primary care will need to order HIDA scan. I will add Carafate has patient is on antacid that she just restarted. I did inform her at this time will place Zofran as allergy given QT prolongation Discussion: Appropriate for discharge home. Exam and laboratory studies are reassuring. Repeat EKG shows significant improvement with QT prolongation after IV fluids. We have listed this as an allergy for her. I did review with her not to take this again. Referral for General surgery for endoscopy of the stomach will be provided. Primary care will provide outpatient HIDA scan. Return precautions reviewed. She desires discharge home Diagnosis: Abdominal pain Discharge Plan Departure Patient Disposition: Home Clinical Impression: Abdominal pain Qualifiers: Abdominal location: right upper quadrant Qualified Code(s): R10.11 - Right upper quadrant pain Instructions: DI for Abdominal Pain-Adult Activity Restrictions/Additional Instructions: Please see family doctor this week for re-evaluation and to schedule HIDA scan of your gallbladder. Please call provided general surgery, Dr. Britt, office for re-evaluation of your abdominal pain and possible endoscopy of the stomach. Please continue your omeprazole. Carafate has been provided for you to help for possible stomach relief pain. We have listed Zofran as an allergy for you as it has likely increased QT interval on your EKG. It has improved here with IV fluids. Return if worse if any questions or concerns. No fried fatty greasy foods or spicy foods. This may upset your abdomen more. Prescriptions: No Action (DME) pen needle, diabetic [Easy Touch Pen Needle] 30 gauge x 5/16 needle See Rx Instructions .Route Qty: 20 0RF Rx Instructions: As directed estradiol 0.05 mg/24 hr patch semiweekly 1 patch transdermal 2XW Qty: 24 3RF Rx Instructions: apply 1 patch to lower abd or hip twice a week omeprazole 40 mg capsule,delayed release(DR/EC) 40 mg PO DAILY Qty: 90 3RF sucralfate [Carafate] 1 gram tablet 1 g PO BID Qty: 180 0RF celecoxib [Celebrex] 100 mg capsule 100 mg PO BID Qty: 180 3RF duloxetine 60 mg capsule,delayed release(DR/EC) 60 mg PO BID Qty: 180 3RF omeprazole 40 mg capsule,delayed release(DR/EC) 40 mg PO DAILY Qty: 30 1RF ibuprofen 600 mg tablet See Rx Instructions PO .PRN PRN Rx Instructions: Take 600-800mg three to four times weekly as needed for pain triamcinolone acetonide 0.1 % ointment 1 applic topical BID Qty: 80 3RF semaglutide 2 mg/dose (8 mg/3 mL) pen injector 2 mg SUBCUT QWEEK Qty: 3 3RF Rx Instructions: Inject 1mg SQ weekly as tolerated, may increase to 2mg SQ weekly after 4 weeks Referrals: Summer Mckeon ARNP [Primary Care Provider] - Jermei Britt MD [Physician] - Stand Alone Forms: Patient Portal/API
[2023-10-28] MEDS: SODIUM CHLORIDE 0.9% 1,000 ML 1000 ML IV ×2 (12:22→14:23)
== END 2023-10-28 15:46 | disposition home or self-care (01) ==
PROVIDERS: Emergency Provider Emergency Medicine; Family Provider Nurse Practitioner; PCP Nurse Practitioner
DX: R10.11 Right upper quadrant pain (principal)
CPT/HCPCS: 76705; 80053; 81003; 83690; 85025; 93005; 99283

== ENCOUNTER 2024-01-11 15:16 | Emergency (ER) | payer OTHER, SELFPAY ==
[2022-10-09 09:38] VITALS: BMI 37.8
[2024-01-11] VITALS (11 sets, daily range): BP systolic 130–142; BP diastolic 70–85; PULSE 67–112; RESP 14–22; TEMP 36.8; O2SAT 94–98; BMI 35.2
--- NOTE | 2024-01-11 15:37 | PC.NURSE ---
Patient was cutting zip ties and slipped and cut her wrist with the scissors along the longitudinal axis. the lac is approx 2 in in length. The cut is deep through the dermis and epidermis and does not appear to extend deep into the fascia and underlying great vessels. Hemostatis was achieved with a coban and gauze pressure dressing which was removed to visualize the wound. The wound was not longer bleeding and the underlying structures could be observed without active bleeding after pressure was removed. CMS was in tact and the patient could flex and extend her thumb and forefinger freely. Her skin distal to the incision was warm and pink. cap refill less than 2 seconds. Provider aware.
[2024-01-11] MEDS: TET,DIPH,PERTUSS(ACELL),VAC/PF 0.5 ML SYRINGE IM (15:47)
[2024-01-11] MEDS: IBUPROFEN 600 MG TABLET PO (17:38)
--- NOTE | 2024-01-11 19:09 | ED.UPPEXIN ---
HPI - Extremity Injury (Upper) General Chief Complaint: Trauma Stated Complaint: L WRIST ARTERIAL LACERATION Time Seen by Provider: 01/11/24 18:01 Source: patient Mode of arrival: Ambulatory History of Present Illness HPI narrative: 58-year-old female with laceration to her wrist proximally 230 today, lacerated with scissor accidentally, local wound pressure. She can feel her fingers, no numbness or tingling. Bleeding controlled with local pressure. No other wounds. 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 Related Data Home Medications Medication Instructions Recorded Confirmed ibuprofen 600 mg tablet See Rx Instructions PO .PRN PRN 12/11/22 11/18/23 Previous Rx's Medication Instructions Recorded triamcinolone acetonide 0.1 % 1 applic topical BID #80 grams 12/11/22 topical ointment duloxetine 60 mg capsule,delayed 60 mg PO BID #180 caps 05/07/23 release semaglutide 2 mg/dose (8 mg/3 mL) 2 mg (0.75 mL) SUBCUT QWEEK #3 mL 09/25/23 subcutaneous pen injector estradiol 0.05 mg/24 hr semiweekly 1 patch transdermal 2XW #24 ea 10/17/23 transdermal patch omeprazole 40 mg capsule,delayed 40 mg PO DAILY #30 caps 10/27/23 release omeprazole 40 mg capsule,delayed 40 mg PO DAILY #90 caps 10/27/23 release sucralfate 1 gram tablet (Carafate) 1 g PO BID #180 tabs 10/29/23 celecoxib 100 mg capsule (Celebrex) 100 mg PO BID #180 caps 11/06/23 alprazolam 0.5 mg tablet 0.5 mg PO TID PRN flight anxiety 11/18/23 #10 tabs pen needle, diabetic 30 gauge x #20 ea 11/25/23 5/16 (Easy Touch Pen Needle) Allergies Allergy/AdvReac Type Severity Reaction Status Date / Time povidone-iodine Allergy Mild Rash Verified 11/18/23 14:36 [From Betadine] soap [From Betadine] Allergy Mild Rash Verified 11/18/23 14:36 ondansetron Allergy Verified 11/18/23 14:36 erythromycin base AdvReac Mild v/n Verified 11/18/23 14:36 Review of Systems Review of Systems Narrative: per HPI Patient History Medical History Labral tear of right hip joint Weakness of right lower extremity Lumbar spondylosis Dorsalgia Lumbar radiculopathy Right hip pain Ventricular tachycardia (paroxysmal) Atrial tachycardia PSVT (paroxysmal supraventricular tachycardia) Right shoulder pain Palpitations Deviated septum Urinary incontinence Impaired fasting glucose Hyperlipidemia Pelvic floor relaxation Pneumonia (~2015) Elbow pain (~2018) Obesity (BMI 35.0-39.9 without comorbidity) Depression Rosacea (~2019) Eczema Sleep apnea (~2018) Bilateral elbow joint pain Positive PPD Irregular menstrual cycle (~2017) Stress incontinence (~2017) GERD (gastroesophageal reflux disease) (~2014) Perimenopause Surgical History Anesthesia History of meniscectomy of right knee (~2015) History of reduction mammoplasty (~2008) History of radial keratotomy (~1997) Family History Father Diabetes mellitus History of heart disease Hypertension Mother Hyperlipidemia Thyroid condition Brother Diabetes mellitus Obesity Sister Lupus Obesity Prediabetes Sister Thyroid condition History of hip replacement Sister PCOS (polycystic ovarian syndrome) Anxiety Mental health problem Social History household members: spouse Smoking Status: Never smoker Smoking Status: Never smoker alcohol intake frequency: a few times a week Substance Use Type: does not use Exam Narrative Exam Narrative: GENERAL: Well-developed patient, in mild distress. HEAD: Atraumatic. Normocephalic. EYES: Pupils equal round and reactive. Extraocular motions intact. No scleral icterus. No injection or drainage. ENT: Nose without bleeding, purulent drainage. Throat without erythema, tonsillar hypertrophy or exudate. Airway patent. NECK: Trachea midline. Non tender CARDIOVASCULAR: Regular rate and rhythm without murmurs, gallops, or rubs. RESPIRATORY: Clear to auscultation. Breath sounds equal bilaterally. No wheezes, rales, or rhonchi. GASTROINTESTINAL: Abdomen soft, non-tender, nondistended. EXTREMITIES: Laceration oblique volar left distal wrist proximal to palmar crease, no active bleeding, no visible large vessels pulsatile or nonpulsatile, no tendinous structures visible. Good range of motion all fingers, intact to light touch, with good cap refill. BACK: Nontender without deformity or crepitance. No flank tenderness. NEURO: AOx3. Neuro grossly nonfocal SKIN: No rash or erythema of visible areas Initial Vital Signs Initial Vital Signs: Vital Signs Temperature 98.2 F 01/11/24 15:19 Pulse Rate 112 H 01/11/24 15:19 Respiratory Rate 22 01/11/24 15:19 Blood Pressure 141/79 H 01/11/24 15:19 Pulse Oximetry 94 01/11/24 15:19 Oxygen Delivery Method Room Air 01/11/24 15:19 Procedures Laceration Repair Laceration 1: Time of procedure: 19:43 Site: upper extremity (volar wrist, laceration superficial to arterial and tendinous structures) Side (If applicable): left Size (cm): 5 Depth: simple, single layer Local Anesthetic: lidocaine 1% and with epi Amount of anesthesia used (mL): 8 Skin layer suture size: 3-0 Number of sutures: 6 Technique: simple, interrupted (Vertical mattress interrupted sutures) Course Orders Ordered: Discontinued Medications Bacitracin (Bacitracin Oint 0.9 Gm Pckt) 1 applic TOP NOW ONE Stop: 01/11/24 19:54 Last Admin: 01/11/24 19:59 Dose: 1 applic Documented By: EULA Diphtheria/Tetanus/Acell Pertussis (Tet,Diph,Pertuss(Acell),Vac/Pf 0.5 Ml Syringe) 0.5 ml IM .ONCE ONE Stop: 01/11/24 15:43 Last Admin: 01/11/24 15:47 Dose: 0.5 ml Documented By: EULA Hydromorphone HCl (Hydromorphone 1 Mg Inj) 0.5 mg IM NOW ONE Stop: 01/11/24 19:09 Last Admin: 01/11/24 19:12 Dose: 0.5 mg Documented By: EULA Ibuprofen (Ibuprofen 600 Mg Tablet) 600 mg PO NOW ONE Stop: 01/11/24 17:33 Last Admin: 01/11/24 17:38 Dose: 600 mg Documented By: EULA Lidocaine/Epinephrine (Lidocaine 1% W/Epi) 1 ml SUBCUT NOW ONE Stop: 01/11/24 19:23 Last Admin: 01/11/24 19:24 Dose: 1 ml Documented By: ALANA Tramadol HCl (Tramadol 50 Mg Prepack) 1 bottle MISC DIRECTED ONE Stop: 01/11/24 20:02 Last Admin: 01/11/24 20:04 Dose: 1 bottle Documented By: Vital Signs Vital signs: Vital Signs - 8 hr 01/11/24 18:30 01/11/24 18:30 01/11/24 19:00 Pulse Rate 71 Respiratory Rate Blood Pressure 136/78 142/74 H Pulse Oximetry 96 Oxygen Delivery Method 01/11/24 19:00 01/11/24 19:30 01/11/24 19:30 Pulse Rate 67 73 Respiratory Rate 18 Blood Pressure 138/81 Pulse Oximetry 96 97 Oxygen Delivery Method 01/11/24 20:09 Pulse Rate 67 Respiratory Rate 14 Blood Pressure 138/81 Pulse Oximetry 96 Oxygen Delivery Method Room Air MDM - Extremity Injury (Upper) MDM Narrative Medical decision making narrative: Laceration distal left volar wrist, superficial to large vessels, superficial to tendon structure, neurovascularly intact, hemo dynamically stable. Wound closure with sutures, see procedure note. Tolerated well. Dressed in antibiotic ointment, Xeroform nonstick pad, Velcro wrist splint. Wound check advised to days. Likely suture removal 7-10 days if no signs symptoms of infection. Patient improved, discharged home. Return precautions discussed Discharge Plan Departure Patient Disposition: Home Clinical Impression: Laceration Activity Restrictions/Additional Instructions: Accidental left distal wrist laceration to the skin, on examination it appeared to be superficial to the venules and radial artery and larger arteriole vessels, also no visible tendon structures, good neuro exam distal fingers, moving fingers well, sensation intact to light touch, good perfusion. Tetanus shot given. Wound closed with interrupted vertical mattress sutures, proximally 5 cm closed with 6 sutures, then nonstick overlying dressing, with Velcro wrist splint. Advised wound check in 2 days. Suture removal likely in 7-10 days if no signs infection. Return earlier to this/nearest emergency department for any change worsening symptoms or any concerns prior Prescriptions: No Action estradiol 0.05 mg/24 hr patch semiweekly 1 patch transdermal 2XW Qty: 24 3RF Rx Instructions: apply 1 patch to lower abd or hip twice a week omeprazole 40 mg capsule,delayed release(DR/EC) 40 mg PO DAILY Qty: 90 3RF sucralfate [Carafate] 1 gram tablet 1 g PO BID Qty: 180 0RF celecoxib [Celebrex] 100 mg capsule 100 mg PO BID Qty: 180 3RF (DME) pen needle, diabetic [Easy Touch Pen Needle] 30 gauge x 5/16 needle See Rx Instructions .Route Qty: 20 1RF Rx Instructions: As directed duloxetine 60 mg capsule,delayed release(DR/EC) 60 mg PO BID Qty: 180 3RF alprazolam 0.5 mg tablet 0.5 mg PO TID PRN (Reason: flight anxiety) Qty: 10 1RF omeprazole 40 mg capsule,delayed release(DR/EC) 40 mg PO DAILY Qty: 30 1RF ibuprofen 600 mg tablet See Rx Instructions PO .PRN PRN Rx Instructions: Take 600-800mg three to four times weekly as needed for pain triamcinolone acetonide 0.1 % ointment 1 applic topical BID Qty: 80 3RF semaglutide 2 mg/dose (8 mg/3 mL) pen injector 2 mg SUBCUT QWEEK Qty: 3 3RF Rx Instructions: Inject 1mg SQ weekly as tolerated, may increase to 2mg SQ weekly after 4 weeks Referrals: Summer Mckeon ARNP [Primary Care Provider] - Stand Alone Forms: Patient Portal/API
[2024-01-11] MEDS: HYDROMORPHONE 1 MG INJ 0.5 MG IM (19:12)
[2024-01-11] MEDS: LIDOCAINE 1% W/EPI 1 ML SUBCUT (19:24)
[2024-01-11] MEDS: BACITRACIN OINT 0.9 GM PCKT 1 APPLIC TOP (19:59)
[2024-01-11] MEDS: TRAMADOL 50 MG PREPACK 1 BOTTLE MISC (20:04)
== END 2024-01-11 20:12 | disposition home or self-care (01) ==
PROVIDERS: Emergency Provider Emergency Medicine; Family Provider Nurse Practitioner; PCP Nurse Practitioner
DX: S61.512A Laceration without foreign body of left wrist, initial encounter (principal); W45.8XXA Other foreign body or object entering through skin, initial encounter; Z23 Encounter for immunization
CPT/HCPCS: 12002; 90471; 96372; 99283; 99284; 90715; J1170

== ENCOUNTER → 2024-01-15 14:52 | Outpatient (CLI) | payer OTHER, SELFPAY ==
[2022-10-09 09:38] VITALS: BMI 37.8
[2024-01-15 16:51] LABS: Iron 81 ug/dL (37-170)
[2024-01-15 17:04] LABS: Total Iron Binding Capacity 305 ug/dL (265-497)
[2024-01-15 17:22] LABS: Ferritin 27 ng/mL (11-264)
== END ==
PROVIDERS: Family Provider Nurse Practitioner; PCP Nurse Practitioner; Referring Provider Nurse Practitioner; Visit Provider Nurse Practitioner
DX: G25.81 Restless legs syndrome (principal); E83.10 Disorder of iron metabolism, unspecified
CPT/HCPCS: 36415; 82728; 83540; 83550

== ENCOUNTER 2024-02-20 11:15 | Emergency (ER) | payer OTHER, SELFPAY ==
[2022-10-09 09:38] VITALS: BMI 37.8
[2024-02-20] VITALS (8 sets, daily range): BP systolic 87–118; BP diastolic 59–74; PULSE 68–100; RESP 14–27; TEMP 36.2; O2SAT 95–98; BMI 35.9
--- NOTE | 2024-02-20 11:22 | DI.RAD.S_ITS ---
PROCEDURE: XR CHEST 1V INDICATIONS: chest pain TECHNIQUE: One view of the chest was acquired. COMPARISON: [facility], CR, XR CHEST 2V, 04/24/2022, 14:44. FINDINGS: Surgical changes and devices: None. Lungs and pleura: Lungs are clear. No pleural effusions or pneumothorax. Mediastinum: Mediastinal contours appear normal. Heart size is normal. Bones and chest wall: No suspicious bony lesions. Overlying soft tissues appear unremarkable. IMPRESSION: No acute cardiopulmonary abnormality is seen. Dictated by: Sukhwinder Yu M.D. on 02/20/2024 at 12:47 Approved by: Sukhwinder Yu M.D. on 02/20/2024 at 12:47
--- NOTE | 2024-02-20 11:26 | EKG_ITS ---
[address] [address] Test Date: 2024-02-20 Pat Name: Allyson Cuellar Department: [facility] Room: Gender: Female [employer]: KAMARI : 1965 Requested By: Order Number: [id number] Reading MD: Wilner Parra Measurements Intervals [place] Rate: 85 P: 47 [place]: 146 QRS: 2 QRSD: 88 T: 14 QT: 354 QTc: 421 Interpretive Statements Normal sinus rhythm Possible Left atrial enlargement Electronically Signed On 02-20-2024 20:14:32 PDT by Wilner Parra
[2024-02-20 11:55] LABS: INR 0.9 (0.9-1.3); Prothrombin Time 10.5 SECONDS (9.4-12.5)
[2024-02-20 11:58] LABS: PTT Partial Thromboplastin Tim 38 SECONDS (25.1-36.5)
[2024-02-20 12:00] LABS: Add Manual Diff / Slide Review NO; Basophils Absolute Auto 100 /uL (0-100); Basophils Percent Auto 1.1 % (0-2); Eosinophils Absolute Auto 200 /uL (0-450); Eosinophils Percent Auto 2.8 % (2-4); Hematocrit 41.8 % (36-46); Lymphocytes Absolute Auto 2300 /uL (1100-4500); Lymphocytes Percent Auto 34.9 % (25-40); Mean Corpuscular HGB Conc 33.6 % (30-36); Mean Corpuscular Hemoglobin 30.1 PG (26-34); Mean Corpuscular Volume 89.7 fL (80-100); Monocytes Absolute Auto 500 /uL (0-900); Neutrophils Absolute Auto 3600 /uL (1500-7000); Neutrophils Percent Auto 54.2 % (50-75); Platelet Count 282 X10^3/uL (150-400); Red Blood Cell Count 4.66 X10^6/uL (4.0-5.2); White Blood Cell Count 6.6 X10^3/uL (4.5-11.0)
[2024-02-20 12:01] LABS: Alanine Aminotransferase 18 IU/L (<35); Albumin 4.3 g/dL (3.5-5.0); Albumin Globulin Ratio 1.3 (1.0-2.8); Alkaline Phosphatase 97 U/L (38-126); Aspartate Aminotransferase 23 IU/L (14-36); BUN Creatinine Ratio 20.7 (6-22); Bilirubin Total 0.5 mg/dL (0.2-1.3); Blood Urea Nitrogen 17 mg/dL (7-17); Calcium 9.6 mg/dL (8.4-10.2); Carbon Dioxide 21 mmol/L (22-32); Chloride 106 mmol/L (98-107); Creatine Kinase 46 U/L (30-135); Estimated Glomerular Filt Rate > 60 mL/min (>60); Globulin 3.2 g/dL (1.7-4.1); Glucose 137 mg/dL (70-100); HEMOLYSIS < 15 (0-50); Lipase 105 U/L (23-300); Magnesium 2.1 mg/dL (1.6-2.3); Potassium 4.1 mmol/L (3.4-5.1); Sodium 136 mmol/L (137-145); Total Protein 7.5 g/dL (6.3-8.2)
[2024-02-20 12:12] LABS: NT-proBNP (BNP-Adult 18+) 85 pg/mL (<125); Troponin I < 0.012 ng/mL (0.01-0.034)
--- NOTE | 2024-02-20 14:02 | ED_ITS ---
HPI - Arrhythmia/Palpitations General Chief Complaint: Arrhythmia/Palpitations Stated Complaint: afib, heart rate high Time Seen by Provider: 02/20/24 13:50 Source: patient Mode of arrival: Ambulatory History of Present Illness HPI narrative: Symptoms have resolved but prior to arrival, symptoms quit 15 minutes before she got here, patient had 2-1/2 hours of palpitations dizzy nausea and sweaty. No chest pain. Her smart watch recording had resulted with atrial fibrillation., it was her Apple watch. No EKG. Patient has had these symptoms for the past 2 years off and on. Patient has had Zio patch as well as Holter monitor that showed variable rhythms of SVT short V-tach/6 beats, atrial tachycardia. Patient has not seen a joy operator helper. There is family history of atrial fibrillation. Patient is not on any blood pressure medication or antiarrhythmics. Laboratory studies at this time are reassuring. EKG is normal sinus rhythm. Related Data Home Medications Medication Instructions Recorded Confirmed ibuprofen 600 mg tablet See Rx Instructions PO .PRN PRN 12/11/22 11/18/23 Previous Rx's Medication Instructions Recorded triamcinolone acetonide 0.1 % 1 applic topical BID #80 grams 12/11/22 topical ointment duloxetine 60 mg capsule,delayed 60 mg PO BID #180 caps 05/07/23 release estradiol 0.05 mg/24 hr semiweekly 1 patch transdermal 2XW #24 ea 10/17/23 transdermal patch omeprazole 40 mg capsule,delayed 40 mg PO DAILY #30 caps 10/27/23 release omeprazole 40 mg capsule,delayed 40 mg PO DAILY #90 caps 10/27/23 release sucralfate 1 gram tablet (Carafate) 1 g PO BID #180 tabs 10/29/23 celecoxib 100 mg capsule (Celebrex) 100 mg PO BID #180 caps 11/06/23 alprazolam 0.5 mg tablet 0.5 mg PO TID PRN flight anxiety 11/18/23 #10 tabs pen needle, diabetic 30 gauge x #20 ea 11/25/2311/05 (Easy Touch Pen Needle) tramadol 50 mg tablet 50 mg PO Q8H PRN pain #14 tabs 01/12/24 naltrexone 8 mg-bupropion 90 mg 1 tab PO ONCE #30 tabs 01/20/24 tablet,extended release (Contrave) tirzepatide 5 mg/0.5 mL 5 mg (0.5 mL) SUBCUT QWEEK #2 mL 02/25/24 subcutaneous pen injector Allergies Allergy/AdvReac Type Severity Reaction Status Date / Time povidone-iodine Allergy Mild Rash Verified 02/20/24 11:18 [From Betadine] soap [From Betadine] Allergy Mild Rash Verified 02/20/24 11:18 ondansetron Allergy Verified 02/20/24 11:18 erythromycin base AdvReac Mild v/n Verified 02/20/24 11:18 Review of Systems Review of Systems Narrative: GENERAL: negative chills, fatigue, malaise, fever, positive sweats. HEENT: negative sinus pain, ear pain, sore throat RESPIRATORY: negative dyspnea, cough CARDIOVASCULAR: negative chest pain, positive palpitations GASTROINTESTINAL: negative nausea, vomiting, abdominal pain : negative dysuria, frequency, hematuria MUSCULOSKELETAL: negative muscle or bony pain SKIN: negative rash, skin lesions NEUROLOGIC: negative weakness, numbness positive dizziness Patient History Medical History Labral tear of right hip joint Weakness of right lower extremity Lumbar spondylosis Dorsalgia Lumbar radiculopathy Right hip pain Ventricular tachycardia (paroxysmal) Atrial tachycardia PSVT (paroxysmal supraventricular tachycardia) Right shoulder pain Palpitations Deviated septum Urinary incontinence Impaired fasting glucose Hyperlipidemia Pelvic floor relaxation Pneumonia (~2015) Elbow pain (~2018) Obesity (BMI 35.0-39.9 without comorbidity) Depression Rosacea (~2019) Eczema Sleep apnea (~2018) Bilateral elbow joint pain Positive PPD Irregular menstrual cycle (~2017) Stress incontinence (~2018) GERD (gastroesophageal reflux disease) (~2014) Perimenopause Surgical History Anesthesia History of meniscectomy of right knee (~2015) History of reduction mammoplasty (~2008) History of radial keratotomy (~1997) Family History Father Diabetes mellitus History of heart disease Hypertension Mother Hyperlipidemia Thyroid condition Brother Diabetes mellitus Obesity Sister Lupus Obesity Prediabetes Sister Thyroid condition History of hip replacement Sister PCOS (polycystic ovarian syndrome) Anxiety Mental health problem Social History household members: spouse Smoking Status: Never smoker Smoking Status: Never smoker alcohol intake frequency: holidays/special occasions only Substance Use Type: does not use Exam Narrative Exam Narrative: GENERAL: in no distress, not toxic not dyspneic HEAD: Normocephalic. EYES: Pupils equal round ENT: Mucous membranes moist. NECK: Trachea midline. CARDIOVASCULAR: Regular rate and rhythm RESPIRATORY: Clear to auscultation. Breath sounds equal bilaterally. No wheezes, rales, or rhonchi. GASTROINTESTINAL: Abdomen soft, non-tender EXTREMITIES: No gross deformities. BACK: No flank tenderness. NEURO: AOx4. SKIN: Warm and dry PSYCH: Not anxious, is cooperative Initial Vital Signs Initial Vital Signs: Vital Signs Temperature 97.2 F L 02/20/24 11:18 Pulse Rate 100 H 02/20/24 11:18 Respiratory Rate 15 02/20/24 11:18 Blood Pressure 102/70 02/20/24 11:18 Pulse Oximetry 97 02/20/24 11:18 Oxygen Delivery Method Room Air 02/20/24 11:18 Course Orders Ordered: Discontinued Medications Aspirin (Aspirin 81 Mg Chew Tab) 324 mg PO NOW ONE Stop: 02/20/24 11:23 Last Admin: 02/20/24 14:21 Dose: Not Given Documented By: RADHA Vital Signs Vital signs: Vital Signs - 8 hr 02/20/24 11:18 02/20/24 13:12 02/20/24 13:30 Temperature 97.2 F L Pulse Rate 100 H 80 77 Respiratory Rate 15 24 16 Blood Pressure 102/70 Pulse Oximetry 97 95 96 Oxygen Delivery Method Room Air 02/20/24 13:30 02/20/24 14:00 02/20/24 14:00 Temperature Pulse Rate 78 Respiratory Rate 27 H Blood Pressure 101/59 L 101/60 Pulse Oximetry 97 Oxygen Delivery Method MDM - Arrhythmia/Palpitations Lab Data 02/20/24 11:35 02/20/24 11:35 Labs: Lab Results 02/20/24 Range/Units 11:35 WBC 6.6 (4.5-11.0) X10^3/uL RBC 4.66 (4.0-5.2) X10^6/uL Hgb 14.0 (12.0-16.0) g/dL Hct 41.8 (36-46) % MCV 89.7 (80-100) fL MCH 30.1 (26-34) PG MCHC 33.6 (30-36) % RDW 13.0 (11.6-14.8) % Plt Count 282 (150-400) X10^3/uL Neut % (Auto) 54.2 (50-75) % Lymph % (Auto) 34.9 (25-40) % [place] % (Auto) 7.0 (3-14) % Eos % (Auto) 2.8 (2-4) % Baso % (Auto) 1.1 (0-2) % Neut # (Auto) 3600 (1467-0437) /uL Lymph # (Auto) 2300 (9184-1516) /uL [place] # (Auto) 500 (0-900) /uL Eos # (Auto) 200 (0-450) /uL Baso # (Auto) 100 (0-100) /uL PT 10.5 (9.4-12.5) SECONDS INR 0.9 (0.9-1.3) APTT 38 H (25.1-36.5) SECONDS Sodium 136 L (137-145) mmol/L Potassium 4.1 (3.4-5.1) mmol/L Chloride 106 (98-107) mmol/L Carbon Dioxide 21 L (22-32) mmol/L BUN 17 (7-17) mg/dL Creatinine 0.82 (0.52-1.04) mg/dL Estimated GFR > 60 (>60) mL/min BUN/Creatinine Ratio 20.7 (6-22) Glucose 137 H (70-100) mg/dL Calcium 9.6 (8.4-10.2) mg/dL Magnesium 2.1 (1.6-2.3) mg/dL Total Bilirubin 0.5 (0.2-1.3) mg/dL AST 23 (14-36) IU/L ALT 18 (<35) IU/L Alkaline Phosphatase 97 (38-126) U/L Total Creatine Kinase 46 (30-135) U/L Troponin I < 0.012 (0.01-0.034) ng/mL NT-Pro-B Natriuret Pep 85 (<125) pg/mL Total Protein 7.5 (6.3-8.2) g/dL Albumin 4.3 (3.5-5.0) g/dL Globulin 3.2 (1.7-4.1) g/dL Albumin/Globulin Ratio 1.3 (1.0-2.8) Lipase 105 (23-300) U/L TSH 1.05 (0.47-4.68) uIU/mL Imaging Data Chest x-ray: Radiologist's Impresson: [address] [address] XRay Report Signed Patient: Allyson Cuellar MR#: [id number] : 1965 Acct:[id number] Age/Sex: 58 / F Date of Service: 02/20/24 Loc: ED Accession Number: [id number] Procedure: XR chest 1V Ordering Provider: Qamar Sanchez MD PROCEDURE: XR CHEST 1V INDICATIONS: chest pain TECHNIQUE: One view of the chest was acquired. COMPARISON: [facility], , XR CHEST 2V, 04/24/2022, 14:44. FINDINGS: Surgical changes and devices: None. Lungs and pleura: Lungs are clear. No pleural effusions or pneumothorax. Mediastinum: Mediastinal contours appear normal. Heart size is normal. Bones and chest wall: No suspicious bony lesions. Overlying soft tissues appear unremarkable. IMPRESSION: No acute cardiopulmonary abnormality is seen. Dictated by: Sukhwinder Yu M.D. on 02/20/2024 at 12:47 Approved by: Sukhwinder Yu M.D. on 02/20/2024 at 12:47 [facility] Narrative Medical decision making narrative: Symptoms have resolved but prior to arrival, symptoms quit 15 minutes before she got here, patient had 2-1/2 hours of palpitations dizzy nausea and sweaty. No chest pain. Her smart watch recording had resulted with atrial fibrillation., it was her Apple watch. No EKG. Patient has had these symptoms for the past 2 years off and on. Patient has had Zio patch as well as Holter monitor that showed variable rhythms of SVT short V-tach/6 beats, atrial tachycardia. Patient has not seen a joy operator helper. There is family history of atrial fibrillation. Patient is not on any blood pressure medication or antiarrhythmics. Laboratory studies at this time are reassuring. EKG is normal sinus rhythm. After history and exam CBC CMP troponin TSH EKG chest x-ray [facility] Medical records reviewed: Multiple cardiac monitors Holter monitors in the past 2 years Differential considered: Includes but not limited to SVT AFib a flutter V-tach Lab Test results independently reviewed as above. Pertinent findings: WBC 6.6 hemoglobin 14.0 INR 0.9 sodium 136 potassium 4.1 BUN 17 creatinine 0.82 GFR greater than 60 glucose 137 calcium 9.6 troponin less than 0.012 BNP 85 Independently reviewed EKG normal sinus rhythm rate [address] elevation or depression Imaging studies independently reviewed: Chest x-ray no acute finding Consultations: 3:00 p.m.. Spoke with Cardiology on-call,, dr ewing, patient to follow up with her or Dr. Berman Treatments: None indicated at this time. Symptoms have resolved. Re-evaluations: Updated patient results. At this time they are reassuring. She does agree for follow up with Cardiology/electrophysiology specialist. She will call her family doctor for referral. I will also provide patient phone number for [facility], Dr. Berman Discussion: Appropriate for discharge home exam is reassuring. Patient is asymptomatic at this time. Never had chest pain. No new medications indicated this time. Will need follow up with cardiology services/electrophysiology. Return precautions reviewed. She desires discharge home Diagnosis: Palpitations Discharge Plan Departure Patient Disposition: Home Clinical Impression: Palpitations Instructions: DI for Arrhythmias Activity Restrictions/Additional Instructions: Your exam and laboratory studies are reassuring today. You will need to see your family doctor for referral for Cardiology or you may call provided cardiology offices on Friday for follow up. You may need repeat event monitor or Zio patch or Holter monitor. No new medications or indicated this time. Return if worse if any questions or concerns. Prescriptions: No Action estradiol 0.05 mg/24 hr patch semiweekly 1 patch transdermal 2XW Qty: 24 3RF Rx Instructions: apply 1 patch to lower abd or hip twice a week omeprazole 40 mg capsule,delayed release(DR/EC) 40 mg PO DAILY Qty: 90 3RF sucralfate [Carafate] 1 gram tablet 1 g PO BID Qty: 180 0RF celecoxib [Celebrex] 100 mg capsule 100 mg PO BID Qty: 180 3RF (DME) pen needle, diabetic [Easy Touch Pen Needle] 30 gauge x 5/16 needle See Rx Instructions .Route Qty: 20 1RF Rx Instructions: As directed tramadol 50 mg tablet 50 mg PO Q8H PRN (Reason: pain) Qty: 14 0RF Contrave 8-90 mg tablet extended release 1 tab PO ONCE Qty: 30 1RF Rx Instructions: stop semaglutide tirzepatide 5 mg/0.5 mL pen injector 5 mg SUBCUT QWEEK Qty: 2 3RF Rx Instructions: NCPDP: [id number] Inject 5mg/0.5ml once weekly subcutaneously duloxetine 60 mg capsule,delayed release(DR/EC) 60 mg PO BID Qty: 180 3RF alprazolam 0.5 mg tablet 0.5 mg PO TID PRN (Reason: flight anxiety) Qty: 10 1RF omeprazole 40 mg capsule,delayed release(DR/EC) 40 mg PO DAILY Qty: 30 1RF ibuprofen 600 mg tablet See Rx Instructions PO .PRN PRN Rx Instructions: Take 600-800mg three to four times weekly as needed for pain triamcinolone acetonide 0.1 % ointment 1 applic topical BID Qty: 80 3RF Referrals: Summer Mckeon ARNP [Primary Care Provider] - Santosh Berman MD [Physician] - Zina Ewing DO [Physician] - Stand Alone Forms: Patient Portal/API
[2024-02-20 15:05] LABS: Thyroid Stimulating Hormone 1.05 uIU/mL (0.47-4.68)
== END 2024-02-20 15:10 | disposition home or self-care (01) ==
PROVIDERS: Emergency Provider Emergency Medicine; Family Provider Nurse Practitioner; PCP Nurse Practitioner
DX: R00.2 Palpitations (principal); R07.9 Chest pain, unspecified
CPT/HCPCS: 36415; 71045; 80053; 82550; 83690; 83735; 83880; 84443; 84484; 85025; 85610; 85730; 93005; 99283; 99284

== ENCOUNTER → 2024-03-29 15:01 | Outpatient (CLI) | payer OTHER, SELFPAY ==
[2024-03-01 16:46] VITALS: BMI 37.8
== END ==
PROVIDERS: Family Provider Nurse Practitioner; PCP Registered Nurse Diabetes Educator; Referring Provider Registered Nurse Diabetes Educator; Visit Provider Registered Nurse Diabetes Educator
DX: R00.2 Palpitations (principal); I49.9 Cardiac arrhythmia, unspecified
CPT/HCPCS: 93246; 93248

== ENCOUNTER 2024-05-06 11:15 | Day surgery (SDC) | payer OTHER, SELFPAY ==
[2024-03-01 16:46] VITALS: BMI 37.8
[2024-05-04 09:36] VITALS: BMI 37.4
[2024-05-06 11:42] VITALS: BMI 36.6
[2024-05-06 11:52] VITALS: PULSE 68; RESP 12; TEMP 36.4; O2SAT 97
[2024-05-06] MEDS: ACETAMINOPHEN 325 MG TABLET 975 MG PO (11:54)
[2024-05-06] MEDS: LACTATED RINGERS 1,000 ML 42 ML IV (11:55)
[2024-05-06] MEDS: OXYMETAZOLINE NASAL SPRAY 30 ML 2 SPRAYS NASAL ×2 (12:13→13:33)
--- NOTE | 2024-05-06 13:11 | PM.PREOP ---
Pre-operative Note Interval Note History & Physical reviewed/Exam performed by Physician: Yes Changes to H&P: No
--- NOTE | 2024-05-06 13:11 | PM.OP.1 ---
Operative Date/Time/Diagnoses Date of procedure: 05/06/24 Time of procedure: 13:57 Pre-op diagnosis: Nasal airway obstruction, inferior turbinate hypertrophy, septal deviation, UNA Post-op diagnosis: same Procedure & Clinicians Procedure: Bilateral submucous resection inferior turbinates Same procedure as scheduled: Yes Indications: 58 Year old with the above diagnoses incompletely managed with medical therapy presents for the above procedure. Following discussion of the material risks benefits complications and alternatives, the patient elected to proceed. Surgeon: Germain Alfonso Click Yes if Unassisted: Yes Anesthesia Type: General and Local Operative Notes Findings: Iqzur-[id number]-[id number]-left inferior turbinate hypertrophy, soft tissue and bone reduced bilaterally Estimated Blood Loss (mL): 3 Procedure in detail: Following identification and confirmation of consent as well as preoperative Afrin nasal spray, the patient was brought to the operating room suite and placed in the supine position. General endotracheal anesthesia was administered. I infiltrated the turbinates widely bilaterally with 1% lidocaine 1 100,000 epinephrine followed by temporary packing with cotton with Afrin and 4% lidocaine. Following sterile prep and drape, the packing was removed and I performed a stab incision with a 15 blade and partially elevated around the anterior portion of the turbinate bone to allow resection with forceps submucosally. A 25 gauge spinal needle was used to impale the length of the turbinate, with cautery on a setting of 15 activated on slow withdrawal over 2 passes. The turbinates were then outfractured. A trimmed Merocel sponge was placed bilaterally over the anterior turbinate and saturated with Afrin. The procedure completed, sponge and needle counts were correct and the patient was extubated in the operating room and taken to recovery room in stable condition without known complication. Complications: none Post-operative Condition: stable Disposition: same day surgery Plan for aftercare: Remove Merocel sponges tonight before bed after soaking with Afrin, use Afrin after removal 1 dose as well. Nasal saline every hour while awake, begin irrigations t.i.d. tomorrow if desired. Polysporin to the nostrils at all times, Tylenol alternating with Advil for pain control, oxycodone for breakthrough pain. Elevate head of bed, no nose blowing, no straining for 2 weeks.
[2024-05-06] MEDS: LIDOCAINE 1% W/EPI 20 ML INJ (13:33)
--- NOTE | 2024-05-06 13:42 | SUR.OPER ---
Supine on padded OR bed, head on pillow, arms padded and tucked at sides, legs uncrossed, safety belt at thigh, tape over blanket over lower legs .
[2024-05-06 14:06] VITALS: BP 124/89; PULSE 81; RESP 8; TEMP 36.4; O2SAT 96
[2024-05-06 14:09] VITALS: BP 140/86; PULSE 70; RESP 6; O2SAT 96
[2024-05-06 14:14] VITALS: BP 135/88; PULSE 69; RESP 10; O2SAT 95
[2024-05-06 14:18] VITALS: BP 127/85; PULSE 68; RESP 9; O2SAT 95
[2024-05-06 14:39] VITALS: BP 130/90; PULSE 68; RESP 9; TEMP 36.4; O2SAT 96
--- NOTE | 2024-05-28 09:57 | PM.HP.1 ---
History of Present Illness History of Present Illness Date Patient Seen: 04/05/24 Time Patient Seen: 13:00 Chief complaint: SDC Narrative: 58-year-old female presents for evaluation of persistent nasal obstruction despite medical therapy. No interval health changes since last clinic visit, wants to proceed with bilateral inferior turbinate reduction. [facility] Medical History HTN (hypertension) Seizure Atrial fibrillation Labral tear of right hip joint Weakness of right lower extremity Lumbar spondylosis Dorsalgia Lumbar radiculopathy Right hip pain Ventricular tachycardia (paroxysmal) Atrial tachycardia PSVT (paroxysmal supraventricular tachycardia) Right shoulder pain Palpitations Deviated septum Urinary incontinence Impaired fasting glucose Hyperlipidemia Pelvic floor relaxation Pneumonia (~2015) Elbow pain (~2018) Obesity (BMI 35.0-39.9 without comorbidity) Depression Rosacea (~2019) Eczema Sleep apnea (~2018) Bilateral elbow joint pain Positive PPD Irregular menstrual cycle (~2017) Stress incontinence (~2017) GERD (gastroesophageal reflux disease) (~2014) Perimenopause Surgical History History of hysterectomy Anesthesia History of meniscectomy of right knee (~2015) History of reduction mammoplasty (~2008) History of radial keratotomy (~1997) Family History Father Diabetes mellitus History of heart disease Hypertension Mother Hyperlipidemia Thyroid condition Brother Diabetes mellitus Obesity Sister Lupus Obesity Prediabetes Sister Thyroid condition History of hip replacement Sister PCOS (polycystic ovarian syndrome) Anxiety Mental health problem Social History household members: spouse Smoking Status: Never smoker alcohol intake: current Meds Home Medications and Allergies Home Medications Medication Instructions Recorded Confirmed Type triamcinolone acetonide 0.1 % 1 applic topical BID #80 grams 12/11/22 04/28/24 Rx topical ointment alprazolam 0.5 mg tablet 0.5 mg PO TID PRN flight anxiety 11/18/23 05/06/24 Rx #10 tabs semaglutide 1 mg/dose (4 mg/3 mL) 1 mg (0.75 mL) SUBCUT QWEEK #18 mL 04/28/24 05/06/24 Rx subcutaneous pen injector (Ozempic) celecoxib 100 mg capsule (Celebrex) 100 mg PO BID #180 caps 04/29/24 05/06/24 Rx duloxetine 60 mg capsule,delayed 60 mg PO BID #180 caps 04/29/24 05/06/24 Rx release estradiol 0.05 mg/24 hr semiweekly 1 patch transdermal 2XW #24 ea 04/29/24 04/29/24 Rx transdermal patch omeprazole 40 mg capsule,delayed 40 mg PO DAILY #90 caps 05/03/24 05/06/24 Rx release flecainide 50 mg tablet 50 mg PO BID 05/04/24 05/06/24 History metoprolol tartrate 25 mg tablet 25 mg PO BID 05/04/24 05/06/24 History pen needle, diabetic 32 gauge x #100 ea 05/11/24 Rx 06/26 (Novofine 32) Allergies Allergy/AdvReac Type Severity Reaction Status Date / Time povidone-iodine Allergy Severe Rash Verified 05/06/24 11:37 [From Betadine] soap [From Betadine] Allergy Mild Rash Verified 05/06/24 11:37 ondansetron Allergy Prolonged Verified 05/06/24 11:37 QT interval erythromycin base AdvReac Mild v/n Verified 05/06/24 11:37 latex AdvReac dermatitis Verified 05/06/24 11:37 Review of Systems Review of Systems Narrative: Negative except as listed in the HPI Exam Vital Signs (past 8 hours): Oxygen Delivery Method Room Air Oxygen Flow Rate 2 Narrative Exam Narrative: Well-developed well-nourished, heart regular rate and rhythm without murmur, lungs clear to auscultation bilaterally Assessment & Plan Assessment & Plan narrative: Assessment: Nasal airway obstruction, inferior turbinate hypertrophy, UNA Plan: Following discussion of the material risks benefits complications and alternatives, the patient elected to proceed. Time-Based Coding :: [TOTAL MINUTES] spent with patient and on the chart (including review of chart, obtaining history, exam, reviewing outside data, placing orders, documenting exam and treatment plan, and counseling patient) on [DATE].
== END 2024-05-06 15:02 | disposition home or self-care (01) ==
PROVIDERS: Family Provider Nurse Practitioner; PCP Registered Nurse Diabetes Educator; Referring Provider Otolaryngology; Visit Provider Otolaryngology
PROC: (CPT 30140; principal; 2024-05-06 12:45)
DX: J34.89 Other specified disorders of nose and nasal sinuses (principal); J34.3 Hypertrophy of nasal turbinates; J34.2 Deviated nasal septum; G47.33 Obstructive sleep apnea (adult) (pediatric)
CPT/HCPCS: 30140; J1100; J2250; J2405; J2704; J3010

== ENCOUNTER → 2024-06-09 10:58 | Outpatient (CLI) | payer OTHER, SELFPAY ==
[2024-03-01 16:46] VITALS: BMI 37.8
[2024-06-09 12:22] LABS: Add Manual Diff / Slide Review NO; Basophils Absolute Auto 100 /uL (0-100); Basophils Percent Auto 1.2 % (0-2); Eosinophils Absolute Auto 200 /uL (0-450); Hematocrit 41.1 % (36-46); Hemoglobin 13.9 g/dL (12.0-16.0); Lymphocytes Absolute Auto 2100 /uL (1100-4500); Mean Corpuscular HGB Conc 33.7 % (30-36); Mean Corpuscular Hemoglobin 30.5 PG (26-34); Mean Corpuscular Volume 90.4 fL (80-100); Monocytes Absolute Auto 600 /uL (0-900); Monocytes Percent Auto 9.6 % (3-14); Neutrophils Absolute Auto 3000 /uL (1500-7000); Neutrophils Percent Auto 50.2 % (50-75); Platelet Count 317 X10^3/uL (150-400); Red Blood Cell Count 4.55 X10^6/uL (4.0-5.2); Red Cell Distribution Width 13.1 % (11.6-14.8)
[2024-06-09 12:25] LABS: Hemoglobin A1C% w Est Avg Glu 5.3 % (4.0-6.0)
[2024-06-09 12:37] LABS: Alanine Aminotransferase 23 IU/L (<35); Albumin 4.6 g/dL (3.5-5.0); Albumin Globulin Ratio 1.8 (1.0-2.8); Alkaline Phosphatase 99 U/L (38-126); Aspartate Aminotransferase 27 IU/L (14-36); BUN Creatinine Ratio 19.3 (6-22); Bilirubin Total 0.7 mg/dL (0.2-1.3); Blood Urea Nitrogen 17 mg/dL (7-17); Calcium 10.1 mg/dL (8.4-10.2); Carbon Dioxide 26 mmol/L (22-32); Chloride 105 mmol/L (98-107); Cholesterol 236 mg/dL (140-199); Estimated Glomerular Filt Rate > 60 mL/min (>60); Globulin 2.5 g/dL (1.7-4.1); Glucose 93 mg/dL (70-100); HDL Cholesterol 73 mg/dL (40-60); HEMOLYSIS < 15 (0-50); LDL Cholesterol Calculated 140 mg/dL (<100); Magnesium 2.1 mg/dL (1.6-2.3); Potassium 4.9 mmol/L (3.4-5.1); Sodium 137 mmol/L (137-145); Total Protein 7.1 g/dL (6.3-8.2); Triglycerides 117 mg/dL (35-150)
== END ==
LOC: LAB 11:01
PROVIDERS: Family Provider Nurse Practitioner; PCP Registered Nurse Diabetes Educator; Referring Provider Internal Medicine Cardiovascular Disease; Visit Provider Internal Medicine Cardiovascular Disease
DX: R00.0 Tachycardia, unspecified (principal); I49.3 Ventricular premature depolarization; E78.01 Familial hypercholesterolemia; R73.09 Other abnormal glucose
CPT/HCPCS: 36415; 80053; 80061; 83036; 83735; 85025

== ENCOUNTER → 2024-08-12 12:24 | Outpatient (CLI) | payer OTHER, SELFPAY ==
[2024-03-01 16:46] VITALS: BMI 37.8
[2024-08-12 13:17] LABS: Add Manual Diff / Slide Review NO; Basophils Absolute Auto 100 /uL (0-100); Basophils Percent Auto 0.9 % (0-2); Eosinophils Absolute Auto 100 /uL (0-450); Eosinophils Percent Auto 2.2 % (2-4); Hematocrit 42.1 % (36-46); Hemoglobin 14.2 g/dL (12.0-16.0); Lymphocytes Absolute Auto 2300 /uL (1100-4500); Lymphocytes Percent Auto 34.5 % (25-40); Mean Corpuscular HGB Conc 33.6 % (30-36); Mean Corpuscular Hemoglobin 30.2 PG (26-34); Mean Corpuscular Volume 89.9 fL (80-100); Monocytes Absolute Auto 600 /uL (0-900); Neutrophils Absolute Auto 3500 /uL (1500-7000); Neutrophils Percent Auto 53.4 % (50-75); Platelet Count 320 X10^3/uL (150-400); Red Blood Cell Count 4.69 X10^6/uL (4.0-5.2); White Blood Cell Count 6.6 X10^3/uL (4.5-11.0)
[2024-08-12 13:25] LABS: Hemoglobin A1C% w Est Avg Glu 5.4 % (4.0-6.0)
[2024-08-12 13:28] LABS: Alanine Aminotransferase 29 IU/L (<35); Albumin 4.9 g/dL (3.5-5.0); Albumin Globulin Ratio 1.8 (1.0-2.8); Alkaline Phosphatase 87 U/L (38-126); Aspartate Aminotransferase 31 IU/L (14-36); Bilirubin Total 0.7 mg/dL (0.2-1.3); Blood Urea Nitrogen 21 mg/dL (7-17); Carbon Dioxide 23 mmol/L (22-32); Chloride 103 mmol/L (98-107); Cholesterol 174 mg/dL (140-199); Estimated Glomerular Filt Rate > 60 mL/min (>60); Globulin 2.7 g/dL (1.7-4.1); Glucose 98 mg/dL (70-100); HDL Cholesterol 75 mg/dL (40-60); HEMOLYSIS < 15 (0-50); LDL Cholesterol Calculated 84 mg/dL (<100); Potassium 4.5 mmol/L (3.4-5.1); Sodium 137 mmol/L (137-145); Total Protein 7.6 g/dL (6.3-8.2); Triglycerides 73 mg/dL (35-150)
[2024-08-12 13:58] LABS: TSH w/ Reflex to FT4 2.08 uIU/mL (0.47-4.68)
[2024-08-12 20:27] LABS: Appearance Urine UA CLOUDY; Bilirubin Urine UA NEGATIVE (NEGATIVE); Color Urine UA YELLOW; Glucose Urine UA NEGATIVE (Negative); Ketones Urine UA 1+ (NEGATIVE); Leukocyte Esterase Urine UA NEGATIVE (NEGATIVE); Nitrite Urine UA NEGATIVE (Negative); Occult Blood Urine UA NEGATIVE (Negative); Protein Urine UA NEGATIVE (Negative); Specific Gravity Urine UA 1.025 (1.000-1.035); Urobilinogen Urine UA 0.2 E.U./dL (0.2)
[2024-08-12 20:29] LABS: pH Urine UA 5.5 (4.5-8.0)
[2024-08-12 20:32] LABS: Amorphous Sediment Urine 3+; Bacteria Urine None Seen; Culture Indicated Urine Cult Not Indicated; Mucus Urine 1+ (Negative); RBC Urine None Seen (0-5/HPF); Squamous Epithelial Cell Urine 0-1 /HPF (0-5/HPF); Urine Volume 10mL (spun); WBC Urine None Seen (0-5/HPF)
== END ==
PROVIDERS: Obstetrics & Gynecology Gynecology; Family Provider Nurse Practitioner; PCP Registered Nurse Diabetes Educator; Referring Provider Internal Medicine Cardiovascular Disease; Visit Provider Internal Medicine Cardiovascular Disease
DX: Z00.00 Encounter for general adult medical examination without abnormal findings (principal); I49.3 Ventricular premature depolarization; E78.2 Mixed hyperlipidemia; R73.01 Impaired fasting glucose; E66.9 Obesity, unspecified; N39.46 Mixed incontinence
CPT/HCPCS: 80053; 80061; 81001; 83036; 83735; 84443; 85025

== ENCOUNTER → 2024-09-08 08:29 | Outpatient (CLI) | payer OTHER, SELFPAY ==
[2024-03-01 16:46] VITALS: BMI 37.8
--- NOTE | 2024-09-08 08:31 | DI.MG.S_ITS ---
MM screening mammo BI: 09/08/2024. BI-RADS: 1 CLINICAL: 59-year old female for bilateral screening mammogram. Tyrer-Cuzick lifetime risk of 11.6%. No personal or first-degree family history of breast cancer. Current reported family history of breast cancer: maternal aunt. The patient is status-post reduction mammoplasty. PRIOR EXAMS 05/27/2023, 04/12/2022. MAMMOGRAPHY TECHNIQUE: 2D and 3D (tomosynthesis) digital mammographic views obtained, with additional images as needed for full coverage. Current study was also evaluated with a Computer Aided Detection (CAD) system. DENSITY B. There are scattered areas of fibroglandular density. MAMMOGRAPHY FINDINGS Bilateral: No suspicious mass, asymmetry, microcalcification, or other abnormality seen. No significant change from comparison. IMPRESSION: * No evidence of malignancy. RECOMMENDATIONS Bilateral * Annual screening mammography. OVERALL ASSESSMENT CATEGORY BI-RADS-1: Negative. The [employer] recommends annual screening mammography beginning at age 40 for women with average risk of breast cancer. ELECTRONICALLY SIGNED: Rosario Gaines M.D. on 09/08/2024 at 04:16:53 PM PT Interpreting Station ID: [id number]
== END ==
PROVIDERS: Family Provider Nurse Practitioner; PCP Registered Nurse Diabetes Educator; Referring Provider Registered Nurse Diabetes Educator; Visit Provider Registered Nurse Diabetes Educator
DX: Z12.31 Encounter for screening mammogram for malignant neoplasm of breast (principal); Z80.3 Family history of malignant neoplasm of breast
CPT/HCPCS: 77063; 77067

== ENCOUNTER → 2025-06-20 12:07 | Outpatient (CLI) | payer OTHER, SELFPAY ==
[2024-03-01 16:46] VITALS: BMI 37.8
--- NOTE | 2025-06-20 12:09 | DI.RAD.S_ITS ---
PROCEDURE: FL BARIUM SWALLOW W AIR COMPARISON: None. INDICATIONS: eval for recurrence of hiatal hernia Findings/technique: Thick barium was initially given in the standing PA and left posterior oblique positioning. Normal transit of contrast to the stomach. No dysmotility. Normal mucosa on mucosal relief views. In supine right anterior oblique positioning thin barium was given continuously with intermittent Valsalva. No hernia. Normal esophageal motility. In prone position provoked gastroesophageal reflux noted during the examination though images of this were not captured and stored to PACS. IMPRESSION: Provoked gastroesophageal reflux. No hernia. Dictated by: Nabeel Weston M.D. on 06/20/2025 at 15:49 Approved by: Nabeel Weston M.D. on 06/20/2025 at 15:56
== END ==
LOC: RAD 12:07
PROVIDERS: Family Provider Nurse Practitioner; PCP Registered Nurse Diabetes Educator; Referring Provider Registered Nurse Diabetes Educator; Visit Provider Registered Nurse Diabetes Educator
DX: K21.9 Gastro-esophageal reflux disease without esophagitis (principal); Z98.890 Other specified postprocedural states; Z87.19 Personal history of other diseases of the digestive system; Z90.3 Acquired absence of stomach [part of]
CPT/HCPCS: 74221